=== PATIENT | male | born 1940 | race Caucasian/White ===

== ENCOUNTER → 2016-07-18 | Outpatient (CLI) | payer OTHER ==
--- NOTE | 2016-07-18 10:03 | CT ---
EXAMINATION TYPE: CT abdomen pelvis wo con DATE OF EXAM: 07/18/2016 9:14 AM COMPARISON: Prior abdomen pelvis 26 March 2014, 04 January 2016 HISTORY: f/u for AAA CT DLP: 1116 mGycm Automated exposure control for dose reduction was used. TECHNIQUE: Helical acquisition of images from the lung bases through the pelvis. FINDINGS: LUNG BASES: No significant abnormality is appreciated. AORTA: The aorta is dilated in the infrarenal location, there is aortic stent graft change present, metallic densities course from the level of the anterior and posterior wall on the right as on prior exam. The aorta measures approximately 7.3 cm in greatest dimension and is stable accounting for diff erences in measurement, exam is likely stable compared to prior exam 26 March 2014, luminal linear increased density extending anterior to posteriorly in the left lateral aspect is again noted. Common iliac artery on the right measures approximately 2.7 cm in greatest dimension, the left measures 2.7 cm, essentially stable. LIVER/GB: Scattered calcifications are present within the liver, gallbladder shows a stable appearanc e PANCREAS: No significant abnormality is seen. SPLEEN: Scattered calcifications as in the liver, findings suggest old granulomatous disease ADRENALS: Left adrenal not seen with certainty, patient is status post surgery KIDNEYS: Left kidney is also not seen. Right kidney shows no stone or hydronephrosis. REPRODUCTIVE ORGANS: Prostate is enlarged and shows calcification URINARY BLADDER: Urinary bladder shows a thickened wall likely due to chronic outlet obstruction BOWEL: Diverticular changes associated with the sigmoid colon. FREE AIR: No Free Air is visible. ASCITES: None visible. PELVIC ADENOPATHY: None visualized. RETROPERITONEAL ADENOPATHY: No Retroperitoneal Adenopathy visible. OSSEOUS STRUCTURES: No significant abnormality is seen. IMPRESSION: INFRARENAL ABDOMINAL AORTIC ANEURYSM, COMMON ILIAC ARTERY ANEURYSMS ARE THOUGHT TO BE STABLE ON THIS NONCONTRAST EXAM COMPARED TO MOST RECENT EXAM. DIVERTICULOSIS AND ADDITIONAL FINDINGS ABOVE.
== END | disposition home or self-care (01) ==
LOC: RADCTMAIN 08:59
PROVIDERS: ATTEND Thoracic Surgery (Cardiothoracic Vascular Surgery)
DX: I72.2 Aneurysm of renal artery (principal); I72.3 Aneurysm of iliac artery; K57.30 Diverticulosis of large intestine without perforation or abscess without bleeding
CPT/HCPCS: 74176

== ENCOUNTER 2016-11-10 18:28 | Emergency (ER) | payer OTHER ==
[2016-11-10] MEDS ORDERED: HYDROmorphone 1 MG/ML 1 ML SYRINGE IVP STA ×2 (19:09→22:28)
[2016-11-10] MEDS ORDERED: SODIUM CHLORIDE 0.9% 500 ML IV STA (19:09)
[2016-11-10] MEDS ORDERED: ONDANSETRON 4 MG/2 ML VIAL IVP STA (19:09)
[2016-11-10] MEDS ORDERED: RX INFO: IV CONTRAST WAS GIVEN 1 EACH MISC MISCELLANE PRN (19:10)
--- NOTE | 2016-11-10 19:28 | ED ---
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 Patient states she's had this pain for the last week it has slowly gotten worse. Patient states is in the left side of the abdomen as well. Patient denies any falls traumas or injuries. Patient denies any nausea vomiting changes in bowel or bladder habits. Patient did have that kidney removed due to cancer in the past. Patient does admit to a history of an aneurysm in the past as well. Patient states that he was concerned due to his continued pain and discomfort so he thought he should be evaluated. Patient denies any recent fever, chills, shortness of breath, chest pain, nausea vomiting, numbness or tingling, dysuria or hematuria, constipation or diarrhea, headaches or visual changes, or any other current symptoms. - Related Data Home Medications Medication Instructions Recorded Confirmed Tamsulosin HCl [Flomax] 0.4 mg PO DAILY 11/21/13 11/10/16 Aspirin EC [Ecotrin Low Dose] 81 mg PO DAILY 11/24/13 11/10/16 Atorvastatin [Lipitor] 40 mg PO HS 11/24/13 11/10/16 Carvedilol [Coreg] 25 mg PO BID 10/06/15 11/10/16 Cetirizine HCl [Zyrtec] 10 mg PO DAILY 10/06/15 11/10/16 HYDROcodone/APAP 7.5-325MG [[place] 1 tab PO TID 10/06/15 11/10/16 7.5-325] Budesonide-Formot 160-4.5 Mcg 2 puff INHALATION RT-BID 11/10/16 11/10/16 [Symbicort 160-4.5 Mcg Inhaler] Ergocalciferol (Vitamin D2) 50,000 unit PO Q14D 11/10/16 11/10/16 [Vitamin D2] Ferrous Sulfate [Feosol] 325 mg PO DAILY 11/10/16 11/10/16 Finasteride [Proscar] 5 mg PO DAILY 11/10/16 11/10/16 Ipratropium-Albuterol Nebulize 3 ml INHALATION RT-QID 11/10/16 11/10/16 [Duoneb 0.5 mg-3 mg/3 ml Soln] amLODIPine [Norvasc] 5 mg PO DAILY 11/10/16 11/10/16 cloNIDine HCL [Catapres] 0.1 mg PO TID 11/10/16 11/10/16 glyBURIDE [Diabeta] 2.5 mg PO AC-BID 11/10/16 11/10/16 Allergies Allergy/AdvReac Type Severity Reaction Status Date / Time cephalexin monohydrate Allergy Unknown Verified 11/10/16 19:24 [From Keflex] erythromycin base Allergy Unknown Verified 11/10/16 19:24 Review of Systems ROS Statement: Those systems with pertinent positive or pertinent negative responses have been documented in the HPI. ROS Other: All systems not noted in ROS Statement are negative. Past Medical History Past Medical History: COPD, CVA/TIA, Diabetes Mellitus, Hyperlipidemia, Hypertension Additional Past Medical History / Comment(s): kidney ca, numerous TIA's in 2013 , (R) femur fx. History of Any Multi-Drug Resistant Organisms: None Reported Past Surgical History: Orthopedic Surgery Additional Past Surgical History / Comment(s): kidney removal, aneurysm repair, broken femur 2013 Past Anesthesia/Blood Transfusion Reactions: No Reported Reaction Past Psychological History: No Psychological Hx Reported Smoking Status: Former smoker Past Alcohol Use History: None Reported Past Drug Use History: None Reported - Past Family History Father Family Medical History: Cancer Additional Family Medical History / Comment(s): lung cancer Mother Additional Family Medical History / Comment(s): sarc General Exam - General Exam Comments Initial Comments: General: The patient is awake and alert, in no distress, and does not appear acutely ill. Eye: Pupils are equal, round and reactive to light, extra-ocular movements are intact; there is normal conjunctiva bilaterally. No signs of icterus. Ears, nose, mouth and throat: There are moist mucous membranes and no oral lesions. Neck: The neck is supple, there is no tenderness. Cardiovascular: There is a regular rate and rhythm. No murmur, rub or gallop is appreciated. Respiratory: Lungs are clear to auscultation, respirations are non-labored, breath sounds are equal. No wheezes, stridor, rales, or rhonchi. Gastrointestinal: Soft, non-distended, mild to the left side of the abdomen without masses or organomegaly noted. There is no rebound or guarding present. Left sided CVA tenderness. Bowel sounds are unremarkable. Back: There is no tenderness to palpation in the midline. There is no obvious deformity. No rashes noted. Musculoskeletal: Normal ROM, no tenderness, There is no pedal edema. There is no calf tenderness or swelling. Sensation intact. Pulses equal bilaterally 2+. Neurological: CN II-XII intact, There are no obvious motor or sensory deficits. Coordination appears grossly intact. Speech is normal. Skin: Skin is warm and dry and no rashes or lesions are noted. Psychiatric: Cooperative, appropriate mood & affect, normal judgment. Limitations: no limitations Course Vital Signs 11/10/16 11/10/16 18:59 19:39 Temperature 98.2 F Pulse Rate 70 72 Respiratory 16 18 Rate Blood Pressure 177/81 156/74 O2 Sat by Pulse 94 L 95 Oximetry EKG Findings - EKG Comments: EKG Findings:: Sinus rhythm with first-degree AV block denying bpm, normal axis , no atopy, no S-T depressions or elevations, Medical Decision Making - Medical Decision Making 76-year-old male presents to the emergency department chief complaint of left- sided abdominal pain. At this time patient's imaging and lab work has been reviewed. This time there is concern for an acute splenic infarct. A heparin bolus was administered. On-call surgery Dr. Knight was discussed with the case and due to the severity of the patient's comorbidities as well as our lack of resources she has feels as if the patient needs to go to a larger facility for continued care. At this time the patient is requesting to be transferred [facility] abdominal aortic aneurysm procedure was completed. At this time we will transfer the patient via EMS. Patient is in agreement with this plan. At this time the case was discussed with [facility] and they do accept transfer. Because the patient is Dr. Levy. - Lab Data Result diagrams: 11/10/16 19:20 11/10/16 19:20 Lab Results 11/10/16 11/10/16 11/10/16 Range/Units 19:20 19:20 19:20 WBC 11.0 H (3.8-10.6) k/uL RBC 4.56 (4.30-5.90) m/uL Hgb 14.5 (13.0-17.5) gm/dL Hct 41.8 (39.0-53.0) % MCV 91.8 (80.0-100.0) fL MCH 31.9 (25.0-35.0) pg MCHC 34.8 (31.0-37.0) g/dL RDW 14.1 (11.5-15.5) % Plt Count 210 (150-450) k/uL Neutrophils % 73 % Lymphocytes % 16 % Monocytes % 7 % Eosinophils % 2 % Basophils % 1 % Neutrophils # 8.1 H (1.3-7.7) k/uL Lymphocytes # 1.7 (1.0-4.8) k/uL Monocytes # 0.7 (0-1.0) k/uL Eosinophils # 0.2 (0-0.7) k/uL Basophils # 0.1 (0-0.2) k/uL PT (9.0-12.0) sec INR (<1.2) APTT (22.0-30.0) sec Sodium 137 (137-145) mmol/L Potassium 4.5 (3.5-5.1) mmol/L Chloride 103 (98-107) mmol/L Carbon Dioxide 22 (22-30) mmol/L Anion Gap 12 mmol/L BUN 23 H (9-20) mg/dL Creatinine 1.60 H (0.66-1.25) mg/dL Est GFR (MDRD) Af Amer 51 (>60 ml/min/1.73 sqM) Est GFR (MDRD) Non-Af 42 (>60 ml/min/1.73 sqM) Glucose 212 H (74-99) mg/dL Calcium 9.3 (8.4-10.2) mg/dL Total Bilirubin 0.6 (0.2-1.3) mg/dL AST 18 (17-59) U/L ALT 34 (21-72) U/L Alkaline Phosphatase 99 (38-126) U/L Total Protein 6.8 (6.3-8.2) g/dL Albumin 4.1 (3.5-5.0) g/dL Urine Color Urine Appearance (Clear) Urine pH (5.0-8.0) Ur Specific [place] (1.001-1.035) Urine Protein (Negative) Urine Glucose (UA) (Negative) Urine Ketones (Negative) Urine Blood (Negative) Urine Nitrite (Negative) Urine Bilirubin (Negative) Urine Urobilinogen (<2.0) mg/dL Ur Leukocyte Esterase (Negative) Urine RBC (0-5) /hpf Urine WBC (0-5) /hpf Urine Mucus (None) /hpf Blood Type A Negative Blood Type Confirm Blood Type Recheck CABO Indicated Antibody Screen NEGATIVE Spec Expiration Date 11/13/2016231911/10/16 11/10/16 11/10/16 Range/Units 19:20 20:55 21:00 WBC (3.8-10.6) k/uL RBC (4.30-5.90) m/uL Hgb (13.0-17.5) gm/dL Hct (39.0-53.0) % MCV (80.0-100.0) fL MCH (25.0-35.0) pg MCHC (31.0-37.0) g/dL RDW (11.5-15.5) % Plt Count (150-450) k/uL Neutrophils % % Lymphocytes % % Monocytes % % Eosinophils % % Basophils % % Neutrophils # (1.3-7.7) k/uL Lymphocytes # (1.0-4.8) k/uL Monocytes # (0-1.0) k/uL Eosinophils # (0-0.7) k/uL Basophils # (0-0.2) k/uL PT 9.7 (9.0-12.0) sec INR 0.9 (<1.2) APTT 23.7 (22.0-30.0) sec Sodium (137-145) mmol/L Potassium (3.5-5.1) mmol/L Chloride (98-107) mmol/L Carbon Dioxide (22-30) mmol/L Anion Gap mmol/L BUN (9-20) mg/dL Creatinine (0.66-1.25) mg/dL Est GFR (MDRD) Af Amer (>60 ml/min/1.73 sqM) Est GFR (MDRD) Non-Af (>60 ml/min/1.73 sqM) Glucose (74-99) mg/dL Calcium (8.4-10.2) mg/dL Total Bilirubin (0.2-1.3) mg/dL AST (17-59) U/L ALT (21-72) U/L Alkaline Phosphatase (38-126) U/L Total Protein (6.3-8.2) g/dL Albumin (3.5-5.0) g/dL Urine Color Yellow Urine Appearance Clear (Clear) Urine pH 5.5 (5.0-8.0) Ur Specific [place] 1.017 (1.001-1.035) Urine Protein 1+ H (Negative) Urine Glucose (UA) 3+ H (Negative) Urine Ketones Negative (Negative) Urine Blood Trace H (Negative) Urine Nitrite Negative (Negative) Urine Bilirubin Negative (Negative) Urine Urobilinogen <2.0 (<2.0) mg/dL Ur Leukocyte Esterase Negative (Negative) Urine RBC <1 (0-5) /hpf Urine WBC 1 (0-5) /hpf Urine Mucus Rare H (None) /hpf Blood Type Blood Type Confirm A Negative Blood Type Recheck Antibody Screen Spec Expiration Date - Radiology Data Radiology results: report reviewed, image reviewed Disposition Clinical Impression: Renal insufficiency syndrome, History of kidney cancer, Aortic aneurysm, abdominal, Splenic infarct Disposition: OTHER INSTITUTION NOT DEFINED Referrals: Lauro Zacarias DO [Primary Care Provider] - 1-2 days Time of Disposition: 21:23 - Out of Hospital Transfer - Req. Specs Out of Hospital Transfer - Requested Specifics: Other Emergency Center ( [facility])
[2016-11-10 19:51] LABS: Basophils # (A) 0.1 k/uL (0-0.2); Basophils % (A) 1 %; Eosinophils # (A) 0.2 k/uL (0-0.7); Eosinophils % (A) 2 %; HCT 41.8 % (39.0-53.0); HDW 2.58; HGB 14.5 gm/dL (13.0-17.5); Luc % (Auto) 2; Lymphocytes # (A) 1.7 k/uL (1.0-4.8); Lymphocytes % (A) 16 %; MCH 31.9 pg (25.0-35.0); MCHC 34.8 g/dL (31.0-37.0); MCV 91.8 fL (80.0-100.0); Mean Platelet Volume 7.9; Monocytes # (A) 0.7 k/uL (0-1.0); Monocytes % (A) 7 %; Neutrophils # (A) 8.1 k/uL (1.3-7.7); Neutrophils % (A) 73 %; RBC 4.56 m/uL (4.30-5.90); RDW 14.1 % (11.5-15.5); WBC (Perox) 10.83
[2016-11-10 20:01] LABS: INR 0.9 (<1.2); Partial Thromboplastin Time 23.7 sec (22.0-30.0); Prothrombin Time 9.7 sec (9.0-12.0)
--- NOTE | 2016-11-10 20:09 | CT ---
EXAMINATION TYPE: CT abdomen pelvis wo con DATE OF EXAM: 11/10/2016 COMPARISON: 07/18/2016 HISTORY: Left flank pain CT DLP: mGycm Automated exposure control for dose reduction was used. TECHNIQUE: Helical acquisition of images was performed from the lung bases through the pelvis. FINDINGS: There is minimal pleural thickening at the lung bases. There is a small pericardial effusion. There i s mild linear density at the left lung base. Liver shows no focal defect. There is increased density in the dependent gallbladder consistent with small calcified gallstones. Bile ducts are not dilated. There is no sign of a pancreatic mass. There is variable hypodensity in the spleen. Left kidney is absent. The right kidney shows no hydronephrosis. There is aortoiliac stent noted. The re is a lower abdominal aortic aneurysm that measures up to 7 cm. There is atherosclerotic vascular c alcification. Appendix appears normal. I see no intestinal wall thickening. There are no dilated loops. There is no ascites. There are numerous diverticula in the sigmoid colon. Bladder distends smoothly. There is no sign of a pelvic mass. There is no ascites. Bony structures are intact.. IMPRESSION: THERE IS 7 CM ABDOMINAL AORTIC ANEURYSM WITHOUT CHANGE COMPARED TO OLD EXAM. PATCHY ATELECTASIS AT THE LEFT LUNG BASE IS NEW COMPARED TO OLD EXAM. HYPODENSE AREAS IN THE SPLEEN COULD RELATE TO ACUTE SPLENIC INFARCT AND APPEAR NEW COMPARED TO OLD EX AM. SIGMOID DIVERTICULOSIS WITHOUT SIGN OF DIVERTICULITIS. SMALL CALCIFIED GALLSTONES.
[2016-11-10 20:13] LABS: Calcium 9.3 mg/dL (8.4-10.2); Potassium 4.5 mmol/L (3.5-5.1); Total Bilirubin 0.6 mg/dL (0.2-1.3); Total Protein 6.8 g/dL (6.3-8.2)
[2016-11-10 20:21] VITALS: RESP 18
[2016-11-10 21:12] LABS: Appearance,Urine Clear (Clear); Bilirubin,Urine Negative (Negative); Glucose,Urine (UA) 3+ (Negative); Ketones,Urine Negative (Negative); Leukocyte Esterase,Urine Negative (Negative); Mucus,Urine Rare /hpf; Nitrite,Urine Negative (Negative); PH, Urine 5.5 (5.0-8.0); Particle Count 1679; Protein,Urine 1+ (Negative); RBC,Urine <1 /hpf (0-5); Specific Gravity,Urine 1.017 (1.001-1.035); UA Billing (MACRO vs. MICRO) MICRO; Urobilinogen,Urine <2.0 mg/dL (<2.0); WBC,Urine 1 /hpf (0-5)
[2016-11-10] MEDS ORDERED: HEPARIN SODIUM,PORCINE 5,000 UNIT/ML 1 ML VIAL IV ONE (21:17)
[2016-11-10] MEDS ORDERED: LEVOFLOXACIN 750MG-D5W PMX 750 MG in DEXTROSE/WATER 1 150ML.BAG IVPB STA (21:32)
[2016-11-10 22:43] VITALS: BP 139/73; PULSE 84; TEMP 98.4
== END 2016-11-10 22:47 | disposition short-term general hospital (02) ==
LOC: EC 18:28
DX: D73.5 Infarction of spleen (principal); I71.4 Abdominal aortic aneurysm, without rupture; N28.9 Disorder of kidney and ureter, unspecified; Z85.528 Personal history of other malignant neoplasm of kidney; E78.5 Hyperlipidemia, unspecified; I10 Essential (primary) hypertension; E11.9 Type 2 diabetes mellitus without complications; J44.9 Chronic obstructive pulmonary disease, unspecified; Z87.891 Personal history of nicotine dependence; Z79.82 Long term (current) use of aspirin; Z79.891 Long term (current) use of opiate analgesic; Z79.51 Long term (current) use of inhaled steroids; Z79.84 Long term (current) use of oral hypoglycemic drugs; Z79.899 Other long term (current) drug therapy; Z88.1 Allergy status to other antibiotic agents; Z90.5 Acquired absence of kidney; Z98.890 Other specified postprocedural states
CPT/HCPCS: 99285; 96374; 96375 ×2; 96376; 96361; 36415; 93005; 86900; 86901; 80053; 85025; 85610; 85730; 86850; 81001; 87040; 87086; 74176; J1644; J2405; J1170

== ENCOUNTER → 2017-02-07 | Outpatient (CLI) | payer OTHER ==
--- NOTE | 2017-02-07 11:41 | CT ---
EXAMINATION TYPE: CT abdomen pelvis wo con DATE OF EXAM: 02/07/2017 COMPARISON: 11/10/2016 and 07/18/2016 HISTORY: 76-year-old male follow-up AAA CT DLP: 1014 mGycm. Automated exposure control for dose reduction was used. TECHNIQUE: Contiguous axial scanning of the abdomen and pelvis without IV contrast. Coronal and sagit lara reconstructions performed. FINDINGS: Heart is normal size with small anterior basilar pericardial effusion. Prominent subpleural fat depos ition posterior lung bases, left greater than right. [place]andy areas of atelectasis or scar present. Liver enlarged measuring 19.4 cm craniocaudal. Otherwise, noncontrast appearance of the liver, adrena l glands, right kidney, and pancreas show no gross abnormality. The left kidney is absent possibly on a surgical or congenital basis. There is stable trace perisplenic fluid or soft tissue thickening along the upper pole of the spleen with heterogeneous and irregular contour to the upper pole. The appearance is unchanged from 7 but new from 07/18/2016 and can be correlated for any history of injury. Tiny layering calculi within the gallbladder. No dilated small bowel, free fluid, or free air. No mesenteric or retroperitoneal lymphadenopathy. Normal appendix. No significant stool burden. There is left hemicolonic diverticulosis greatest in th e proximal to mid sigmoid colon. No pericolonic inflammatory change. Circumferential bladder wall thickening is noted. Prostate gland is enlarged measuring 5.7 cm wide. N o abnormal fluid collection in the pelvis or pelvic lymphadenopathy. Patulous right inguinal canal. Bones: Intramedullary nail and screw fixation on the right. Mild degenerative changes at the hips. Degenerat kamron disc disease and facet arthropathy lower lumbar spine. No osseous destructive process. Vasculature: - Tortuous thoracic aorta with aneurysm of the distal descending thoracic aorta at 3.5 cm. - Mild aneurysm at the thoracoabdominal junction at 3.2 cm. - There is possible focal narrowing at the origin of the celiac axis and fusiform dilatation of the c eliac artery up to 1.6 cm, unchanged. - Mild aneurysm upper abdominal aorta just before the level of the stent graft at 3.1 cm. - Aortobiiliac stent graft is present beginning at the level of the renal arteries. - [place] aneurysm sac measures 7.1 cm wide and 6.7 cm AP (versus 7.0 x 6.6, previously). - Stable calcifications and density within the [place] sac outside of the stent grafts. - At the distal landing zones, the common iliac arteries remain ectatic measuring 2.6 cm on the right and 2.2 cm on the left, not significantly changed. - Contrast was not given for the determination of endoleak. IMPRESSION: 1. Aortobiiliac endovascular stent graft. The [place] sac is grossly stable (7.1 x 6.7 cm versus 7.0 x 6.6 cm, previously). Contrast was not administered for the determination of endoleak. 2. The common iliac arteries at the distal landing zones remain ectatic measuring 2.6 and 2.2 cm on the right and left sides, respectively. 3. Stable aneurysm of the distal descending thoracic aorta and upper abdominal aorta (3.5 and 3.1 cm , respectively). 4. 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 Given possible narrowing at its origin, cor relate for any symptoms of possible arcuate ligament syndrome. 5. Cholelithiasis, left hemicolonic diverticulosis, prostatomegaly, and circumferential bladder wall thickening that could represent cystitis or chronic bladder wall hypertrophy from BPH. 6. Stable deformity to the upper pole of the spleen as compared to 11/10/2016, again noted to be new from 07/18/2016; possibly on a posttraumatic basis. Clinically correlate.
== END | disposition home or self-care (01) ==
LOC: RADCTMAIN 09:40
PROVIDERS: ATTEND Thoracic Surgery (Cardiothoracic Vascular Surgery)
DX: I71.4 Abdominal aortic aneurysm, without rupture (principal); I71.2 Thoracic aortic aneurysm, without rupture; K80.20 Calculus of gallbladder without cholecystitis without obstruction; K57.30 Diverticulosis of large intestine without perforation or abscess without bleeding; N40.0 Benign prostatic hyperplasia without lower urinary tract symptoms; N32.89 Other specified disorders of bladder; D73.89 Other diseases of spleen; Z95.828 Presence of other vascular implants and grafts
CPT/HCPCS: 74176

== ENCOUNTER 2017-04-23 12:15 | Emergency (ER) | payer OTHER ==
[2017-04-23] MEDS ORDERED: IBUPROFEN 600 MG TAB PO STA (13:02)
[2017-04-23] MEDS ORDERED: ACETAMINOPHEN TAB 500 MG TAB PO STA (13:02)
[2017-04-23] MEDS ORDERED: LEVOFLOXACIN 750MG-D5W PMX 750 MG in DEXTROSE/WATER 1 150ML.BAG IVPB STA (13:03)
[2017-04-23] MEDS ORDERED: ALBUTEROL NEBULIZED 7.5 MG, IPRATROPIUM NEBULIZED 0.5 MG, SODIUM CHLORIDE 0.9% NEBULIZ ... INHALATION ONE ×3 (13:03)
[2017-04-23] MEDS ORDERED: methylPREDNISolone SOD SUCCI 125 MG/2 ML VIAL IV STA (13:04)
--- NOTE | 2017-04-23 13:06 | ED ---
General Adult HPI - General Chief complaint: Shortness of Breath Stated complaint: Diff Breathing, Fever Time Seen by Provider: 04/23/17 12:30 Source: patient, family, RN notes reviewed Mode of arrival: wheelchair Limitations: no limitations - History of Present Illness Initial comments: This is a 76-year-old male with past medical history significant for COPD per patient comes in today because he has been coughing for the last 3-4 days. Patient states last 2 days she's had a fever but today he has not taken his temperature and so he doesn't know. Patient states also much more short of breath than normal. Patient denies any chest pain or palpitations. Patient denies any calf pain or leg swelling. Patient denies abdominal pain patient denies nausea vomiting diarrhea. Patient denies any lightheadedness dizziness or near syncopal episode. - Related Data Home Medications Medication Instructions Recorded Confirmed Tamsulosin HCl [Flomax] 0.4 mg PO DAILY 11/21/13 04/23/17 Aspirin EC [Ecotrin Low Dose] 81 mg PO DAILY 11/24/13 04/23/17 Atorvastatin [Lipitor] 40 mg PO HS 11/24/13 04/23/17 Carvedilol [Coreg] 25 mg PO BID 10/06/15 04/23/17 Cetirizine HCl [Zyrtec] 10 mg PO DAILY 10/06/15 04/23/17 HYDROcodone/APAP 7.5-325MG [[place] 1 tab PO TID 10/06/15 04/23/17 7.5-325] Budesonide-Formot 160-4.5 Mcg 2 puff INHALATION RT-BID 11/10/16 04/23/17 [Symbicort 160-4.5 Mcg Inhaler] Ergocalciferol (Vitamin D2) 50,000 unit PO MO 11/10/16 04/23/17 [Vitamin D2] Ferrous Sulfate [Feosol] 325 mg PO DAILY 11/10/16 04/23/17 Finasteride [Proscar] 5 mg PO DAILY 11/10/16 04/23/17 Ipratropium-Albuterol Nebulize 3 ml INHALATION RT-QID 11/10/16 04/23/17 [Duoneb 0.5 mg-3 mg/3 ml Soln] amLODIPine [Norvasc] 5 mg PO DAILY 11/10/16 04/23/17 cloNIDine HCL [Catapres] 0.1 mg PO TID 11/10/16 04/23/17 Apixaban [Eliquis] 5 mg PO BID 04/23/17 04/23/17 Calcitriol [Rocaltrol] 0.25 mcg PO MO 04/23/17 04/23/17 Docusate [Colace] 100 mg PO BID 04/23/17 04/23/17 Lisinopril [Zestril] 5 mg PO DAILY 04/23/17 04/23/17 glipiZIDE [Glucotrol] 10 mg PO AC-BID 04/23/17 04/23/17 Previous Rx's Medication Instructions Recorded Levofloxacin [Levaquin] 750 mg PO DAILY #10 tab 04/23/17 predniSONE 40 mg PO DAILY #8 tab 04/23/17 Allergies Allergy/AdvReac Type Severity Reaction Status Date / Time cephalexin monohydrate Allergy Unknown Verified 04/23/17 13:37 [From Miproto] erythromycin base Allergy Unknown Verified 04/23/17 13:37 Review of Systems ROS Statement: Those systems with pertinent positive or pertinent negative responses have been documented in the HPI. ROS Other: All systems not noted in ROS Statement are negative. Past Medical History Past Medical History: COPD, CVA/TIA, Diabetes Mellitus, Hyperlipidemia, Hypertension Additional Past Medical History / Comment(s): kidney ca, numerous TIA's in 2013 , (R) femur fx. History of Any Multi-Drug Resistant Organisms: None Reported Past Surgical History: Orthopedic Surgery Additional Past Surgical History / Comment(s): kidney removal, aneurysm repair, broken femur 2013 Past Anesthesia/Blood Transfusion Reactions: No Reported Reaction Past Psychological History: No Psychological Hx Reported Smoking Status: Former smoker Past Alcohol Use History: None Reported Past Drug Use History: None Reported - Past Family History Father Family Medical History: Cancer Additional Family Medical History / Comment(s): lung cancer Mother Additional Family Medical History / Comment(s): sarc General Exam - General Exam Comments Initial Comments: GENERAL: Patient is well-developed and well-nourished. Patient is nontoxic and well- hydrated and is in mild distress. ENT: Neck is soft and supple. No significant lymphadenopathy is noted. Oropharynx is clear. Moist mucous membranes. Neck has full range of motion without eliciting any pain. EYES: The sclera were anicteric and conjunctiva were pink and moist. Extraocular movements were intact and pupils were equal round and reactive to light. Eyelids were unremarkable. PULMONARY: Patient is a very wheezing and slight crackles in the right base CARDIOVASCULAR: There is a regular rate and rhythm without any murmurs gallops or rubs. ABDOMEN: Soft and nontender with normal bowel sounds. No palpable organomegaly was noted. There is no palpable pulsatile mass. SKIN: Skin is clear with no lesions or rashes and otherwise unremarkable. NEUROLOGIC: Patient is alert and oriented x3. Cranial nerves II through XII are grossly intact. Motor and sensory are also intact. Normal speech, volume and content. Symmetrical smile. MUSCULOSKELETAL: Normal extremities with adequate strength and full range of motion. LYMPHATICS: No significant lymphadenopathy is noted PSYCHIATRIC: Normal psychiatric evaluation. Normal interpersonal interactions appears functionally intact in deals appropriately with others. No signs of depression. No signs of anxiety. Limitations: no limitations Course Vital Signs 04/23/17 04/23/17 04/23/17 12:26 12:30 13:21 Temperature 98.9 F 101.7 F H Pulse Rate 88 87 Respiratory 20 Rate Blood Pressure 115/59 O2 Sat by Pulse 94 L Oximetry 04/23/17 04/23/17 04/23/17 13:36 14:06 14:13 Temperature Pulse Rate 90 88 94 Respiratory Rate Blood Pressure O2 Sat by Pulse Oximetry 04/23/17 15:32 Temperature 97.9 F Pulse Rate 73 Respiratory 20 Rate Blood Pressure 95/59 O2 Sat by Pulse 96 Oximetry Medical Decision Making - Medical Decision Making EKG shows sinus rhythm at 89 bpm UT interval is 278 QRSs 100 Q-T intervals 3:30 QTC is 411. Patient's EKG shows occasional PAC. There is no ST segment elevation noted. Chest x-ray shows no acute abnormality. - Lab Data Result diagrams: 04/23/17 12:45 04/23/17 12:45 Lab Results 04/23/17 04/23/17 04/23/17 Range/Units 12:45 12:45 12:45 WBC 7.2 (3.8-10.6) k/uL RBC 4.82 (4.30-5.90) m/uL Hgb 14.7 (13.0-17.5) gm/dL Hct 43.5 (39.0-53.0) % MCV 90.4 (80.0-100.0) fL MCH 30.5 (25.0-35.0) pg MCHC 33.8 (31.0-37.0) g/dL RDW 13.3 (11.5-15.5) % Plt Count 134 L (150-450) k/uL Neutrophils % 83 % Lymphocytes % 11 % Monocytes % 4 % Eosinophils % 0 % Basophils % 0 % Neutrophils # 6.0 (1.3-7.7) k/uL Lymphocytes # 0.8 L (1.0-4.8) k/uL Monocytes # 0.3 (0-1.0) k/uL Eosinophils # 0.0 (0-0.7) k/uL Basophils # 0.0 (0-0.2) k/uL PT (9.0-12.0) sec INR (<1.2) APTT (22.0-30.0) sec Sodium 129 L (137-145) mmol/L Potassium 4.8 (3.5-5.1) mmol/L Chloride 97 L (98-107) mmol/L Carbon Dioxide 23 (22-30) mmol/L Anion Gap 9 mmol/L BUN 26 H (9-20) mg/dL Creatinine 2.30 H (0.66-1.25) mg/dL Est GFR (MDRD) Af Amer 34 (>60 ml/min/1.73 sqM) Est GFR (MDRD) Non-Af 28 (>60 ml/min/1.73 sqM) Glucose 182 H (74-99) mg/dL Plasma Lactic Acid [place] (0.7-2.0) mmol/L Calcium 8.6 (8.4-10.2) mg/dL Total Bilirubin 0.9 (0.2-1.3) mg/dL AST 30 (17-59) U/L ALT 40 (21-72) U/L Alkaline Phosphatase 82 (38-126) U/L Total Creatine Kinase 91 (55-170) U/L CK-MB (CK-2) 0.4 (0.0-2.4) ng/mL CK-MB (CK-2) Rel Index 0.4 Troponin I 0.017 (0.000-0.034) ng/mL Total Protein 6.4 (6.3-8.2) g/dL Albumin 3.5 (3.5-5.0) g/dL Urine Color Urine Appearance (Clear) Urine pH (5.0-8.0) Ur Specific [place] (1.001-1.035) Urine Protein (Negative) Urine Glucose (UA) (Negative) Urine Ketones (Negative) Urine Blood (Negative) Urine Nitrite (Negative) Urine Bilirubin (Negative) Urine Urobilinogen (<2.0) mg/dL Ur Leukocyte Esterase (Negative) Urine Bacteria (None) /hpf Urine Mucus (None) /hpf Influenza Type A RNA (Not Detectd) Influenza Type B (PCR) (Not Detectd) 04/23/17 04/23/17 04/23/17 Range/Units 12:45 12:45 13:01 WBC (3.8-10.6) k/uL RBC (4.30-5.90) m/uL Hgb (13.0-17.5) gm/dL Hct (39.0-53.0) % MCV (80.0-100.0) fL MCH (25.0-35.0) pg MCHC (31.0-37.0) g/dL RDW (11.5-15.5) % Plt Count (150-450) k/uL Neutrophils % % Lymphocytes % % Monocytes % % Eosinophils % % Basophils % % Neutrophils # (1.3-7.7) k/uL Lymphocytes # (1.0-4.8) k/uL Monocytes # (0-1.0) k/uL Eosinophils # (0-0.7) k/uL Basophils # (0-0.2) k/uL PT 10.1 (9.0-12.0) sec INR 1.0 (<1.2) APTT 26.1 (22.0-30.0) sec Sodium (137-145) mmol/L Potassium (3.5-5.1) mmol/L Chloride (98-107) mmol/L Carbon Dioxide (22-30) mmol/L Anion Gap mmol/L BUN (9-20) mg/dL Creatinine (0.66-1.25) mg/dL Est GFR (MDRD) Af Amer (>60 ml/min/1.73 sqM) Est GFR (MDRD) Non-Af (>60 ml/min/1.73 sqM) Glucose (74-99) mg/dL Plasma Lactic Acid [place] 1.5 (0.7-2.0) mmol/L Calcium (8.4-10.2) mg/dL Total Bilirubin (0.2-1.3) mg/dL AST (17-59) U/L ALT (21-72) U/L Alkaline Phosphatase (38-126) U/L Total Creatine Kinase (55-170) U/L CK-MB (CK-2) (0.0-2.4) ng/mL CK-MB (CK-2) Rel Index Troponin I (0.000-0.034) ng/mL Total Protein (6.3-8.2) g/dL Albumin (3.5-5.0) g/dL Urine Color Urine Appearance (Clear) Urine pH (5.0-8.0) Ur Specific [place] (1.001-1.035) Urine Protein (Negative) Urine Glucose (UA) (Negative) Urine Ketones (Negative) Urine Blood (Negative) Urine Nitrite (Negative) Urine Bilirubin (Negative) Urine Urobilinogen (<2.0) mg/dL Ur Leukocyte Esterase (Negative) Urine Bacteria (None) /hpf Urine Mucus (None) /hpf Influenza Type A RNA Not Detected (Not Detectd) Influenza Type B (PCR) Not Detected (Not Detectd) 04/23/17 Range/Units 15:30 WBC (3.8-10.6) k/uL RBC (4.30-5.90) m/uL Hgb (13.0-17.5) gm/dL Hct (39.0-53.0) % MCV (80.0-100.0) fL MCH (25.0-35.0) pg MCHC (31.0-37.0) g/dL RDW (11.5-15.5) % Plt Count (150-450) k/uL Neutrophils % % Lymphocytes % % Monocytes % % Eosinophils % % Basophils % % Neutrophils # (1.3-7.7) k/uL Lymphocytes # (1.0-4.8) k/uL Monocytes # (0-1.0) k/uL Eosinophils # (0-0.7) k/uL Basophils # (0-0.2) k/uL PT (9.0-12.0) sec INR (<1.2) APTT (22.0-30.0) sec Sodium (137-145) mmol/L Potassium (3.5-5.1) mmol/L Chloride (98-107) mmol/L Carbon Dioxide (22-30) mmol/L Anion Gap mmol/L BUN (9-20) mg/dL Creatinine (0.66-1.25) mg/dL Est GFR (MDRD) Af Amer (>60 ml/min/1.73 sqM) Est GFR (MDRD) Non-Af (>60 ml/min/1.73 sqM) Glucose (74-99) mg/dL Plasma Lactic Acid [place] (0.7-2.0) mmol/L Calcium (8.4-10.2) mg/dL Total Bilirubin (0.2-1.3) mg/dL AST (17-59) U/L ALT (21-72) U/L Alkaline Phosphatase (38-126) U/L Total Creatine Kinase (55-170) U/L CK-MB (CK-2) (0.0-2.4) ng/mL CK-MB (CK-2) Rel Index Troponin I (0.000-0.034) ng/mL Total Protein (6.3-8.2) g/dL Albumin (3.5-5.0) g/dL Urine Color Yellow Urine Appearance Clear (Clear) Urine pH 5.5 (5.0-8.0) Ur Specific [place] 1.018 (1.001-1.035) Urine Protein 2+ H (Negative) Urine Glucose (UA) 3+ H (Negative) Urine Ketones Negative (Negative) Urine Blood Negative (Negative) Urine Nitrite Negative (Negative) Urine Bilirubin Negative (Negative) Urine Urobilinogen 2.0 (<2.0) mg/dL Ur Leukocyte Esterase Negative (Negative) Urine Bacteria Rare H (None) /hpf Urine Mucus Rare H (None) /hpf Influenza Type A RNA (Not Detectd) Influenza Type B (PCR) (Not Detectd) Disposition Clinical Impression: Acute bronchitis Disposition: HOME SELF-CARE Instructions: Acute Bronchitis (ED) Additional Instructions: Patient should take Levaquin as prescribed. Patient should continue doing breathing treatments as needed Prescriptions: Levofloxacin [Levaquin] 750 mg PO DAILY #10 tab predniSONE 40 mg PO DAILY #8 tab Referrals: Lauro Zacarias DO [Primary Care Provider] - 1-2 days Time of Disposition: 16:08
[2017-04-23] MEDS: SODIUM CHLORIDE 0.9% 500 ML IV SCH (13:14)
[2017-04-23 13:21] LABS: Basophils % (A) 0 %; Eosinophils % (A) 0 %; HCT 43.5 % (39.0-53.0); HGB 14.7 gm/dL (13.0-17.5); Lymphocytes # (A) 0.8 k/uL (1.0-4.8); Lymphocytes % (A) 11 %; MCH 30.5 pg (25.0-35.0); MCHC 33.8 g/dL (31.0-37.0); MCV 90.4 fL (80.0-100.0); Mean Platelet Volume 7.8; Monocytes # (A) 0.3 k/uL (0-1.0); Monocytes % (A) 4 %; Neutrophils % (A) 83 %; Platelet Count 134 k/uL (150-450); RBC 4.82 m/uL (4.30-5.90); RDW 13.3 % (11.5-15.5); WBC 7.2 k/uL (3.8-10.6)
[2017-04-23 13:28] LABS: Albumin 3.5 g/dL (3.5-5.0); Calcium 8.6 mg/dL (8.4-10.2); Potassium 4.8 mmol/L (3.5-5.1); Total Bilirubin 0.9 mg/dL (0.2-1.3); Total Protein 6.4 g/dL (6.3-8.2)
[2017-04-23 13:29] LABS: Partial Thromboplastin Time 26.1 sec (22.0-30.0); Prothrombin Time 10.1 sec (9.0-12.0)
[2017-04-23 13:51] LABS: Creatine Kinase MB 0.4 ng/mL (0.0-2.4); Troponin I 0.017 ng/mL (0.000-0.034)
--- NOTE | 2017-04-23 14:36 | XR ---
EXAMINATION TYPE: XR chest 2V DATE OF EXAM: 04/23/2017 COMPARISON: 10/06/2015 TECHNIQUE: PA and lateral views submitted. HISTORY: Cough and fever FINDINGS: The lungs are clear and there is no pneumothorax, pleural effusion, or focal pneumonia. Calcified l ymph nodes in the hilum noted. Atherosclerotic change aorta. Biapical pleural thickening. No overt fa ilure. Hypertrophic and degenerative change of the spine. Calcified granuloma suspected posteriorly o n the lateral view. Pleural thickening noted. IMPRESSION: 1. No acute process.
[2017-04-23 15:43] LABS: Appearance,Urine Clear (Clear); Bacteria,Urine Rare /hpf; Bilirubin,Urine Negative (Negative); Blood,Urine Negative (Negative); Color,Urine Yellow; Glucose,Urine (UA) 3+ (Negative); Ketones,Urine Negative (Negative); Leukocyte Esterase,Urine Negative (Negative); Mucus,Urine Rare /hpf; Nitrite,Urine Negative (Negative); PH, Urine 5.5 (5.0-8.0); Protein,Urine 2+ (Negative); Specific Gravity,Urine 1.018 (1.001-1.035)
[2017-04-24 23:03] VITALS: BP 100/58; PULSE 78; RESP 18; TEMP 97.9
== END 2017-04-23 16:27 | disposition home or self-care (01) ==
LOC: EC 12:15
DX: J20.9 Acute bronchitis, unspecified (principal); J44.0 Chronic obstructive pulmonary disease with (acute) lower respiratory infection; I49.1 Atrial premature depolarization; E78.5 Hyperlipidemia, unspecified; I10 Essential (primary) hypertension; E11.9 Type 2 diabetes mellitus without complications; Z87.891 Personal history of nicotine dependence; Z79.01 Long term (current) use of anticoagulants; Z79.51 Long term (current) use of inhaled steroids; Z79.82 Long term (current) use of aspirin; Z79.84 Long term (current) use of oral hypoglycemic drugs; Z79.891 Long term (current) use of opiate analgesic; Z79.899 Other long term (current) drug therapy; Z88.1 Allergy status to other antibiotic agents; Z85.528 Personal history of other malignant neoplasm of kidney; Z98.890 Other specified postprocedural states; Z80.1 Family history of malignant neoplasm of trachea, bronchus and lung
CPT/HCPCS: 99285; 36415; 94644; 93005; 80053; 82550; 82553; 83605; 84484; 85025; 85610; 85730; 81001; 87040; 87086; 87502; 71046; 96365; 96366; 96375; J2930; J1956

== ENCOUNTER → 2018-03-14 | Outpatient (CLI) | payer OTHER ==
--- NOTE | 2018-03-14 10:39 | MR ---
EXAMINATION TYPE: MR shoulder RT wo con DATE OF EXAM: 03/14/2018 COMPARISON: None HISTORY: Right shoulder pain TECHNIQUE: Multiplanar, multisequence imaging of the right shoulder is performed without contrast. FINDINGS: Rotator Cuff: There is a rotator cuff tear present, supraspinatus and infraspinatus tendons are separ ated from their insertion and retracted significantly, infraspinatus tendon is disrupted and shows fl uid signal to the level of the scapular spine, supraspinatus tendon not well appreciated distal to th e acromioclavicular joint, again fluid signal is noted Acromioclavicular Joint: Arthropathy is present. Glenohumeral Joint: Shoulder is high riding. Remodeling is present compatible with osteoarthritic venkat nge of the humeral head. Labrum: There is some fraying of the anterior labrum which may be degenerative. Biceps Tendon: Long head of biceps tendon is present within the bicipital groove, there are T2 hyperi ntense foci along the tendon extending into the musculature anteriorly inferior to the coracoid proce ss compatible with probable ganglion formation Bone marrow signal: Pseudocysts are present in the humeral head. Some reactive marrow signal change s uspected in the acromion. Other: Distal acromial spur suspected. IMPRESSION: Chronic rotator cuff tear and additional findings above.
== END | disposition home or self-care (01) ==
LOC: RADMRIMAIN 08:57
DX: M75.101 Unspecified rotator cuff tear or rupture of right shoulder, not specified as traumatic (principal); M19.011 Primary osteoarthritis, right shoulder; M89.9 Disorder of bone, unspecified

== ENCOUNTER → 2020-07-28 | Outpatient (CLI) | payer OTHER ==
--- NOTE | 2020-07-28 15:17 | US ---
EXAMINATION TYPE: US kidneys/renal and bladder DATE OF EXAM: 07/28/2020 COMPARISON: NONE CLINICAL HISTORY: Chronic Kidney Disease N18.3. CKD, left nephrectomy EXAM MEASUREMENTS: Right Kidney: 11.8 x 5.8 x 5.3 cm Left Kidney: Surgically absent Right Kidney: no evidence of hydronephrosis Left Kidney: Surgically absent Bladder: appears wnl Bilateral Jets seen: no There is no evidence for hydronephrosis at this point in time. No nephrolithiasis is seen. No laura s are identified. The urinary bladder is anechoic. IMPRESSION: Left nephrectomy changes. No distinct abnormality appreciated.
== END | disposition home or self-care (01) ==
LOC: RADUSWWP 14:48
PROVIDERS: ATTEND Internal Medicine Nephrology
DX: N18.30 Chronic kidney disease, stage 3 unspecified (principal); Z90.5 Acquired absence of kidney
CPT/HCPCS: 76770

== ENCOUNTER → 2022-09-26 | Outpatient (CLI) | payer OTHER ==
--- NOTE | 2022-09-26 15:24 | XR ---
EXAMINATION TYPE: XR chest 2V DATE OF EXAM: 09/26/2022 COMPARISON: NONE TECHNIQUE: PA and lateral views submitted. HISTORY: Renal cell carcinoma FINDINGS: The lungs are clear and there is no pneumothorax, pleural effusion, or focal pneumonia. Heart size normal and no overt failure. Osseous structures demonstrate hypertrophic and degenerative changes of the spine. Dilation of the ascending aorta measuring 4.5 cm. AC joint arthropathy noted. Hyperinflati on of the lungs correlate for COPD. Calcified lymph nodes in the hilum. Cannot exclude a small granul victorino on the lateral view. IMPRESSION: 1. No acute process. There is a suggestion of a thoracic aortic aneurysm measuring 4.[address] chest.
--- NOTE | 2022-09-28 09:05 | CT ---
EXAMINATION TYPE: CT abdomen pelvis wo con DATE OF EXAM: 09/26/2022 COMPARISON: 02/07/2017 HISTORY: MALIGNANT NEOPLASM OF LEFT KIDNEY CT DLP: 1567.8 mGycm Examination of the solid and hollow viscera is limited given the lack of contrast. FINDINGS: LUNG BASES: No evidence for nodule. No evidence for infiltrate. LIVER/GB: Layering gallstones are seen within the gallbladder lumen. No space-occupying hepatic lesio n. PANCREAS: No pancreatic mass identified. No inflammatory process seen. SPLEEN: No evidence for splenomegaly. No intrasplenic lesions seen. ADRENALS: No adrenal nodules identified. No evidence for thickening. KIDNEYS: There is been left-sided nephrectomy with the left renal fossa free of distinct mass at this time. The right kidney reveals No evidence for renal mass. No nephrolithiasis. No hydronephrosis. BOWEL: Appendix has a normal appearance. No evidence of bowel obstruction. No inflammatory process. S igmoid diverticulosis without diverticulitis. Lymph nodes: No evidence for adenopathy greater than 1 cm. Abdominal aorta: Aortoiliac stent graft is in place. [place] aneurysm measures 6.5 cm maximal AP dimen dax. Genital organs: Enlarged prostate gland. Other: Postoperative changes right hip fixation. Vacuum disc L5-S1. IMPRESSION: 1. Postoperative changes of left-sided nephrectomy without evidence for tumor recurrence or residual mass. 2. [place] abdominal aortic aneurysm with aortoiliac stent graft as discussed. 2. Layering gallstones.
== END | disposition home or self-care (01) ==
LOC: RADCTMAIN 15:02
PROVIDERS: ATTEND Urology
DX: C64.2 Malignant neoplasm of left kidney, except renal pelvis (principal)
CPT/HCPCS: 71046; 74176

== ENCOUNTER → 2022-10-16 | Outpatient (CLI) | payer OTHER ==
--- NOTE | 2022-10-18 07:36 | MR ---
EXAMINATION TYPE: MR Prostate wo/w con DATE OF EXAM: 10/16/2022 COMPARISON: CT abdomen and pelvis September 26, 2022 INDICATION: Elevated PSA. PSA: 7.50 ng/ml on September 12, 2022 increased from 3.18 in 2018 Recent Biopsy and Date: Biopsy 2011 Pathology Report (If Applicable): Benign results. TECHNIQUE: Examination was performed using a 3T MRI without an endorectal coil. Multiparametric imaging was perf ormed with T2 mutliplanar sequences, axial diffusion weighted imaging and dynamic contrast enhanced i maging, utilizing 11.5 mL intravenous Gadavist gadolinium contrast. FINDINGS: PROSTATE VOLUME: 6.7 cm SI x 5.4 cm AP x 6.9 cm LR Vol= 130.7 cc PSA DENSITY: 0.06 ng/ml/cc Markedly enlarged prostate consistent with BPH. No suspicious areas of diminished signal on ADC mappi ng or increased signal on diffusion-weighted imaging in the transitional zone. There is overall heter ogeneity in the central transitional zone. There is vague area of heterogeneous diminished T2 signal intensity with indistinct margins right midzone axial image 17 shows no diminished signal on ADC angel ing or increased signal on diffusion-weighted imaging. PI-Rads 3 lesion. Seminal vesicles are symmetric and within normal limits. Prostate capsule is maintained. Urinary blad marcie shows moderate distention without wall thickening or trabeculation . No pelvic adenopathy is seen . No free fluid in pelvis is seen. Visualized osseous structures show susceptibility artifact in the right hip presumed from prior fixation surgery IMPRESSION: Markedly enlarged prostate. A focus of clinically significant cancer is not definitively identified. Highest Assessment Category: 3 MRI Stage: T0 N0 M0 based on review of pelvic images. False negative rates for MRI range from 5-20% depending on risk profile. Assessment Categories: 1 ? Very low (clinically significant cancer is highly unlikely to be present) 2 ? Low (clinically significant cancer is unlikely to be present) 3 ? Intermediate (the presence of clinically significant cancer is equivocal) 4 ? High (clinically significant cancer is likely to be present) 5 ? Very high (clinically significant cancer is highly likely to be present)
== END | disposition home or self-care (01) ==
LOC: RADMRIMAIN 08:07
PROVIDERS: ATTEND Urology
DX: N40.0 Benign prostatic hyperplasia without lower urinary tract symptoms (principal); R97.20 Elevated prostate specific antigen [PSA]
CPT/HCPCS: 72197; A9585

== ENCOUNTER 2023-09-26 10:21 | Observation (INO) | payer OTHER, MEDICARE ==
--- NOTE | 2023-09-26 10:50 | ED ---
Abdominal Pain HPI - General Chief Complaint: Abdominal Pain Stated Complaint: Blood in stool Time Seen by Provider: 09/26/23 10:48 Source: patient, RN notes reviewed Mode of arrival: ambulatory Limitations: no limitations - History of Present Illness Initial Comments: 83-year-old male presented to the ER with a chief complaint of bright red blood per stool. He is reports approximately 2 weeks he has been noticing bright red blood in his stool and when he wipes. He does report he has been straining while defecating. He denies any abdominal pain. Patient is currently taking Eliquis. He denies any history of hemorrhoids or anal fissures. He denies any melena, chest pain, shortness of breath, dizziness, lightheadedness, urinary complaints or peripheral edema. Denies any fevers or chills. - Related Data Home Medications Medication Instructions Recorded Confirmed Tamsulosin HCl [Flomax] 0.4 mg PO HS 11/21/13 09/26/23 Carvedilol [Coreg] 25 mg PO BID-W/MEALS 10/06/15 09/26/23 Cetirizine HCl [Zyrtec] 10 mg PO DAILY 10/06/15 09/26/23 HYDROcodone/APAP 7.5-325MG [[place] 1 tab PO 5XD 10/06/15 09/26/23 7.5-325] Ergocalciferol (Vitamin D2) 50,000 unit PO LEON 11/10/16 09/26/23 [Vitamin D2] Finasteride [Proscar] 5 mg PO HS 11/10/16 09/26/23 Apixaban [Eliquis] 5 mg PO BID 04/23/17 09/26/23 Docusate [Colace] 100 mg PO BID PRN 04/23/17 09/26/23 calcitrioL [Rocaltrol] 0.25 mcg PO SA 04/23/17 09/26/23 glipiZIDE [Glucotrol] 10 mg PO AC-TID 04/23/17 09/26/23 lisinopriL [Zestril] 5 mg PO DAILY 04/23/17 09/26/23 Alogliptin Benzoate [Alogliptin] 12.5 mg PO DAILY 09/26/23 09/26/23 Atorvastatin [Lipitor] 40 mg PO HS 09/26/23 09/26/23 Empagliflozin [Jardiance] 25 mg PO DAILY 09/26/23 09/26/23 Fluticasone Nasal [place] [Flonase 1 spray EA NOSTRIL BID PRN 09/26/23 09/26/23 Nasal [place]] Fluticasone Propion/Salmeterol 1 puff INHALATION RT-BID 09/26/23 09/26/23 [Advair 250-50 Diskus] Furosemide [Lasix] 20 mg PO SUFRSA 09/26/23 09/26/23 Hydrocortisone Oint 1 applic TOPICAL BID PRN 09/26/23 09/26/23 [Hydrocortisone 2.5% Oint] Ketoconazole 2% Cream [Nizoral 2%] 1 applic TOPICAL BID 09/26/23 09/26/23 Petrolatum, White [Aquaphor] 1 applic TOPICAL BID 09/26/23 09/26/23 Allergies Allergy/AdvReac Type Severity Reaction Status Date / Time amoxicillin [From Augmentin] Allergy Rash/Hives Verified 09/26/23 13:31 clavulanic acid Allergy Rash/Hives Verified 09/26/23 13:31 [From Augmentin] erythromycin base Allergy Unknown Verified 09/26/23 13:31 levofloxacin [From Levaquin] Allergy Unknown Verified 09/26/23 13:31 sulfamethoxazole Allergy Rash/Hives Verified 09/26/23 13:31 [From Bactrim] trimethoprim [From Bactrim] Allergy Rash/Hives Verified 09/26/23 13:31 cephalexin monohydrate AdvReac fever, Verified 09/26/23 13:31 [From Keflex] chills, cold sweats Review of Systems ROS Statement: Those systems with pertinent positive or pertinent negative responses have been documented in the HPI. ROS Other: All systems not noted in ROS Statement are negative. Past Medical History Past Medical History: COPD, CVA/TIA, Diabetes Mellitus, Hyperlipidemia, Hypertension Additional Past Medical History / Comment(s): kidney ca, numerous TIA's in 2013, (R) femur fx. History of Any Multi-Drug Resistant Organisms: None Reported Past Surgical History: Orthopedic Surgery Additional Past Surgical History / Comment(s): kidney removal, aneurysm repair, broken femur 2013 Past Anesthesia/Blood Transfusion Reactions: No Reported Reaction Past Psychological History: No Psychological Hx Reported Past Alcohol Use History: None Reported Past Drug Use History: None Reported - Past Family History Father Family Medical History: Cancer Additional Family Medical History / Comment(s): lung cancer Mother Additional Family Medical History / Comment(s): sarc General Exam Limitations: no limitations General appearance: alert, in no apparent distress Respiratory exam: Present: normal lung sounds bilaterally. Absent: respiratory distress, wheezes, rales, rhonchi, stridor Cardiovascular Exam: Present: regular rate, normal rhythm, normal heart sounds. Absent: systolic murmur, diastolic murmur, rubs, gallop, clicks GI/Abdominal exam: Present: soft, tenderness (mild LLQ), normal bowel sounds Skin exam: Present: warm, dry, intact, normal color. Absent: rash Course Vital Signs 09/26/23 10:31 Temperature 97.6 F Pulse Rate 75 Respiratory 16 Rate Blood Pressure 117/72 O2 Sat by Pulse 92 L Oximetry - Reevaluation(s) Reevaluation #1: 09/26/23 13:39 Case discussed with morena Monge, who accepts medical admission. Medical Decision Making - Medical Decision Making Was pt. sent in by a medical professional or institution (, PA, HYDROELECTRIC PLANT TECHNICIAN, urgent care, hospital, or [place] health care facility...) When possible be specific @ -No Did you speak to anyone other than the patient for history (EMS, parent, family, police, friend...)? What history was obtained from this source @ -No Did you review nursing and triage notes (agree or disagree)? Why? @ -I reviewed and agree with nursing and triage notes Were old charts reviewed (outside hosp., previous admission, EMS record, old EKG, old radiological studies, urgent care reports/EKG's, [place] health care facility records)? Report findings @ -No old charts were reviewed Differential Diagnosis (chest pain, altered mental status, abdominal pain women, abdominal pain men, vaginal bleeding, weakness, fever, dyspnea, syncope, headache, dizziness, GI bleed, back pain, seizure, CVA, palpatations, mental health, musculoskeletal)? @ -Differential GI Bleed:Esophageal varices, aortoenteric fistula, Meg- Patel, gastritis, peptic ulcer disease, diverticulosis, inflammatory bowel disease, hemorrhoids, fissure, colitis, malignancy, Meckels diverticulum, this is not meant to be an all-inclusive list. EKG interpreted by me (3pts min.). @ -None X-rays interpreted by me (1pt min.). @ -None done CT interpreted by me (1pt min.). @ -CT abdomen pelvis negative for acute process. Stable post left nephrectomy and aortoiliac stent graft and mcgrath aneurysm, stable sludge in gallbladder. U/S interpreted by me (1pt. min.). @ -None done What testing was considered but not performed or refused? (CT, X-rays, U/S, labs)? Why? @ -None What meds were considered but not given or refused? Why? @ -None Did you discuss the management of the patient with other professionals (professionals i.e. , PA, HYDROELECTRIC PLANT TECHNICIAN, lab, RT, psych nurse, mental health social worker, auto hauler, teacher, information technology officer, immigration case worker)? Give summary @ -Yes, case discussed with morena Monge physicians, who accepts medical admission. Was smoking cessation discussed for >3mins.? @ -No Was critical care preformed (if so, how long)? @ -No Were there social determinants of health that impacted care today? How? (Homelessness, low income, unemployed, alcoholism, drug addiction, transportation, low edu. Level, literacy, decrease access to med. care, [facility], re hab)? @ -No Was there de-escalation of care discussed even if they declined (Discuss DNR or withdrawal of care, Hospice)? DNR status @ -No What co-morbidities impacted this encounter? (DM, HTN, Smoking, COPD, CAD, Cancer, CVA, ARF, Chemo, Hep., AIDS, mental health diagnosis, sleep apnea, morbid obesity)? @ -History of TIA patient is currently taking Eliquis Was patient admitted / discharged? Hospital course, mention meds given and route, prescriptions, significant lab abnormalities, going to OR and other pertinent info. @ -[Admitted. 83-year-old male presented to ER with a chief complaint of bright red blood per stool. History and physical exam completed. Vitals remarkable for temperature 97.6, pulse 75, respiratory rate 16, blood pressure 117/72, and oxygen saturation 92% on room air. Patient no signs of acute distress and nontoxic-appearing. No focal abdominal tenderness with normal bowel sounds. Rectal exam chaperoned by Mariana Goff RN. Exam negative from hemorrhoids or anal fissures. No gross blood on exam. Laboratory studies obtained remarkable for hemoglobin stable at 15.6, sodium 136, KACEY (BUN 31, creatinine 1.5) GFR 43. Kidney function at baseline may be due to patient having left nephrectomy. Urinalysis showing 4+ glucose, leukocyte esterases, 15 RBCs and 62 WBCs. Stool occult positive. CT abdomen pelvis performed due to rectal bleeding and positive occult stool. CT negative for acute process. Admission considered as patient is currently taking Eliquis and having unknown source of bleeding. Case discussed with morena Monge, who accepts medical admission. GI will be on consult. Patient agreeable for admission. Case discussed with ED attending, Dr. Whitaker. Undiagnosed new problem with uncertain prognosis? @ -No Drug Therapy requiring intensive monitoring for toxicity (Heparin, Nitro, Insulin, Cardizem)? @ -No Were any procedures done? @ -No Diagnosis/symptom? @ -Rectal bleeding Acute, or Chronic, or Acute on Chronic? @ -Acute Uncomplicated (without systemic symptoms) or Complicated (systemic symptoms)? @ -Uncomplicated Side effects of treatment? @ -No Exacerbation, Progression, or Severe Exacerbation? @ -No Poses a threat to life or bodily function? How? (Chest pain, [place], [place], pneumonia, PE, COPD, DKA, ARF, appy, cholecystitis, CVA, Diverticulitis, Homicidal, Suicidal, threat to staff... and all critical care pts) @ -Possibly - Lab Data Result diagrams: 09/26/23 11:02 09/26/23 11:02 Lab Results 09/26/23 09/26/23 09/26/23 Range/Units 10:55 11:02 11:02 WBC 7.7 (3.8-10.6) k/uL RBC 5.10 (4.30-5.90) m/uL Hgb 15.6 (13.0-17.5) gm/dL Hct 47.4 (39.0-53.0) % MCV 93.1 (80.0-100.0) fL MCH 30.6 (25.0-35.0) pg MCHC 32.9 (31.0-37.0) g/dL RDW 13.2 (11.5-15.5) % Plt Count 156 (150-450) k/uL MPV 8.4 Neutrophils % 64 % Lymphocytes % 22 % Monocytes % 6 % Eosinophils % 5 % Basophils % 1 % Neutrophils # 4.9 (1.3-7.7) k/uL Lymphocytes # 1.7 (1.0-4.8) k/uL Monocytes # 0.5 (0-1.0) k/uL Eosinophils # 0.4 (0-0.7) k/uL Basophils # 0.1 (0-0.2) k/uL Sodium (137-145) mmol/L Potassium (3.5-5.1) mmol/L Chloride (98-107) mmol/L Carbon Dioxide (22-30) mmol/L Anion Gap mmol/L BUN (9-20) mg/dL Creatinine (0.66-1.25) mg/dL Est GFR (CKD-EPI)AfAm (>60 ml/min/1.73 sqM) Est GFR (CKD-EPI)NonAf (>60 ml/min/1.73 sqM) Glucose (74-99) mg/dL Plasma Lactic Acid [place] (0.7-2.0) mmol/L Calcium (8.4-10.2) mg/dL Total Bilirubin (0.2-1.3) mg/dL AST (17-59) U/L ALT (4-49) U/L Alkaline Phosphatase (38-126) U/L Total Protein (6.3-8.2) g/dL Albumin (3.5-5.0) g/dL Amylase (30-110) U/L Lipase (23-300) U/L Urine Color Urine Appearance (Clear) Urine pH (5.0-8.0) Ur Specific [place] (1.001-1.035) Urine Protein (Negative) Urine Glucose (UA) (Negative) Urine Ketones (Negative) Urine Blood (Negative) Urine Nitrite (Negative) Urine Bilirubin (Negative) Urine Urobilinogen (<2.0) mg/dL Ur Leukocyte Esterase (Negative) Urine RBC (0-5) /hpf Urine WBC (0-5) /hpf Ur Squamous Epith Cells (0-4) /hpf Urine Bacteria (None) /hpf Urine Mucus (None) /hpf Urine Yeast (Budding) (None) /hpf Stool Occult Blood Positive (Negative) Blood Type A Negative Blood Type Recheck A Neg Bld Type Recheck Status No Antibody Screen NEGATIVE Spec Expiration Date 09/29/2023 - 235409/26/23 09/26/23 09/26/23 Range/Units 11:02 11:02 11:02 WBC (3.8-10.6) k/uL RBC (4.30-5.90) m/uL Hgb (13.0-17.5) gm/dL Hct (39.0-53.0) % MCV (80.0-100.0) fL MCH (25.0-35.0) pg MCHC (31.0-37.0) g/dL RDW (11.5-15.5) % Plt Count (150-450) k/uL MPV Neutrophils % % Lymphocytes % % Monocytes % % Eosinophils % % Basophils % % Neutrophils # (1.3-7.7) k/uL Lymphocytes # (1.0-4.8) k/uL Monocytes # (0-1.0) k/uL Eosinophils # (0-0.7) k/uL Basophils # (0-0.2) k/uL Sodium 136 L (137-145) mmol/L Potassium 4.3 (3.5-5.1) mmol/L Chloride 107 (98-107) mmol/L Carbon Dioxide 21 L (22-30) mmol/L Anion Gap 8 mmol/L BUN 31 H (9-20) mg/dL Creatinine 1.50 H (0.66-1.25) mg/dL Est GFR (CKD-EPI)AfAm 50 (>60 ml/min/1.73 sqM) Est GFR (CKD-EPI)NonAf 43 (>60 ml/min/1.73 sqM) Glucose 225 H (74-99) mg/dL Plasma Lactic Acid [place] 1.4 (0.7-2.0) mmol/L Calcium 8.9 (8.4-10.2) mg/dL Total Bilirubin 0.8 (0.2-1.3) mg/dL AST 23 (17-59) U/L ALT 15 (4-49) U/L Alkaline Phosphatase 76 (38-126) U/L Total Protein 6.5 (6.3-8.2) g/dL Albumin 3.9 (3.5-5.0) g/dL Amylase 38 (30-110) U/L Lipase 60 (23-300) U/L Urine Color Colorless Urine Appearance Clear (Clear) Urine pH 5.5 (5.0-8.0) Ur Specific [place] 1.027 (1.001-1.035) Urine Protein Negative (Negative) Urine Glucose (UA) 4+ H (Negative) Urine Ketones Negative (Negative) Urine Blood Small H (Negative) Urine Nitrite Negative (Negative) Urine Bilirubin Negative (Negative) Urine Urobilinogen <2.0 (<2.0) mg/dL Ur Leukocyte Esterase Large H (Negative) Urine RBC 15 H (0-5) /hpf Urine WBC 62 H (0-5) /hpf Ur Squamous Epith Cells 2 (0-4) /hpf Urine Bacteria Rare H (None) /hpf Urine Mucus Rare H (None) /hpf Urine Yeast (Budding) Occasional H (None) /hpf Stool Occult Blood (Negative) Blood Type Blood Type Recheck Bld Type Recheck Status Antibody Screen Spec Expiration Date - Radiology Data Radiology results: report reviewed, image reviewed Disposition Clinical Impression: Rectal bleeding Disposition: ADMITTED IP TO THIS [facility] Condition: Stable Time of Disposition: 13:40
[2023-09-26 11:25] LABS: Basophils # (A) 0.1 k/uL (0-0.2); Basophils % (A) 1 %; Eosinophils # (A) 0.4 k/uL (0-0.7); Eosinophils % (A) 5 %; HCT 47.4 % (39.0-53.0); HGB 15.6 gm/dL (13.0-17.5); Lymphocytes # (A) 1.7 k/uL (1.0-4.8); Lymphocytes % (A) 22 %; MCH 30.6 pg (25.0-35.0); MCHC 32.9 g/dL (31.0-37.0); MCV 93.1 fL (80.0-100.0); Mean Platelet Volume 8.4; Monocytes # (A) 0.5 k/uL (0-1.0); Monocytes % (A) 6 %; Neutrophils # (A) 4.9 k/uL (1.3-7.7); Neutrophils % (A) 64 %; Platelet Count 156 k/uL (150-450); RDW 13.2 % (11.5-15.5); WBC 7.7 k/uL (3.8-10.6)
[2023-09-26 11:33] LABS: Appearance,Urine Clear (Clear); Bacteria,Urine Rare /hpf; Bilirubin,Urine Negative (Negative); Blood,Urine Small (Negative); Budding Yeast,Urine Occasional /hpf; Color,Urine Colorless; Glucose,Urine (UA) 4+ (Negative); Ketones,Urine Negative (Negative); Leukocyte Esterase,Urine Large (Negative); Mucus,Urine Rare /hpf; Nitrite,Urine Negative (Negative); PH, Urine 5.5 (5.0-8.0); Protein,Urine Negative (Negative); RBC,Urine 15 /hpf (0-5); Specific Gravity,Urine 1.027 (1.001-1.035); Squamous Epithelial Cell,Urine 2 /hpf (0-4); Urobilinogen,Urine <2.0 mg/dL (<2.0); WBC,Urine 62 /hpf (0-5)
[2023-09-26 11:41] LABS: ALT 15 U/L (4-49); AST 23 U/L (17-59); African American GFR (CKD) 50 (>60 ml/min/1.73 sqM); Albumin 3.9 g/dL (3.5-5.0); Alkaline Phosphatase 76 U/L (38-126); Amylase 38 U/L (30-110); Anion Gap 8 mmol/L; Blood Urea Nitrogen 31 mg/dL (9-20); Calcium 8.9 mg/dL (8.4-10.2); Carbon Dioxide 21 mmol/L (22-30); Chloride 107 mmol/L (98-107); Glucose 225 mg/dL (74-99); Lipase 60 U/L (23-300); Non-African American GFR(CKD) 43 (>60 ml/min/1.73 sqM); Potassium 4.3 mmol/L (3.5-5.1); Sodium 136 mmol/L (137-145); Total Bilirubin 0.8 mg/dL (0.2-1.3); Total Protein 6.5 g/dL (6.3-8.2)
--- NOTE | 2023-09-26 12:57 | CT ---
EXAMINATION TYPE: CT abdomen pelvis wo con DATE OF EXAM: 09/26/2023 COMPARISON: 09/26/2022 HISTORY: rectal bleeding CT DLP: 1073.4 mGycm Automated exposure control for dose reduction was used. TECHNIQUE: Helical acquisition of images was performed from the lung bases through the pelvis. FINDINGS: The lungs are clear. There is stable sludge within the gallbladder but no gallbladder distention, wall thickening or peric holecystic fluid. There is no biliary ductal dilatation. There is no organomegaly of the liver, pancreas, spleen or adrenal glands. There is surgical absence of the left kidney. There is no right renal calcification or hydronephrosis. There is an aorto iliac stent graft unchanged. The [place] aneurysm is 7.8 x 6.7 cm and is essentially unchanged in size.. The bowel loops are normal in caliber is no evidence of obstruction. No inflammatory changes are iden tified in the mesentery and there is no free intraperitoneal air or fluid. There is no pelvic mass, free fluid, abscess or adenopathy. The osseous structures and soft tissues are unremarkable. IMPRESSION: 1. Status post left nephrectomy. 2. Stable aortoiliac stent graft and [place] aneurysm. 3. Stable sludge in the gallbladder 4. No acute changes within the abdomen or pelvis.
[2023-09-26] MEDS ORDERED: NALOXONE 0.4 MG/ML 1 ML VIAL IV PRN (13:27)
[2023-09-26] MEDS ORDERED: ACETAMINOPHEN TAB 325 MG TAB PO PRN (13:27)
[2023-09-26] MEDS: SODIUM CHLORIDE 0.9% 1,000 ML IV SCH (13:46)
--- NOTE | 2023-09-26 14:07 | P.HPIM ---
History of Present Illness H&P Date: 09/26/23 History of Presenting Illness: Patient is a very pleasant 83-year-old male with a past medical history of hypertension, hyperlipidemia, abdominal aortic aneurysm status post repair, [id number] diabetes mellitus, CKD stage IIIb with history of renal cancer status post left nephrectomy BPH and currently on Eliquis that he reports is managed by his criminal justice department chair but was unsure if he takes the Eliquis for a previous blood clot or diagnosis of atrial fibrillation. He presented to the emergency department with a chief complaint of bright red blood per rectum. Patient reports over the past 2 weeks every time he has a bowel movement or wipes he has noticed bright red blood in the toilet and on the toilet paper. He denies experiencing any abdominal pain or discomfort, cramping, history of hemorrhoids or anal fissures, nausea, decreased appetite, unintentional weight loss, dizziness, lightheadedness, chest pain, palpitations, or shortness of breath. He reports his last colonoscopy was approximately 10 to 15 years ago or more. Upon arrival to our facility patient underwent evaluation in the emergency department. Vital signs upon arrival show blood pressure 117/72, heart rate 75, respiratory rate 16, temp 97.6 F, and SpO2 of 92% on room air. Labs were completed and reviewed. CBC unremarkable with a stable hemoglobin of 15.6 and platelet count of 156. BMP showing mild hypocarbia with bicarb of 21 and elevated renal function with BUN of 31, creatinine 1.50, and GFR 43. Blood glucose was elevated at 225. Lactic acid 1.4. Liver profile unremarkable. Urinalysis positive for glucose, blood, leukocytes, 15 RBCs, and 62 WBCs. Fecal occult was positive. CT was negative for acute intra-abdominal process. Patient was admitted under our services with consultation to gastroenterology. Review of systems: Pertinent positives and negatives as discussed in HPI, a complete review of systems was performed and all other systems are negative. Physical exam: Vital signs reviewed and stable. General: Nontoxic, no distress and appears stated age. Obese. Derm: Skin warm and dry, normal coloration for ethnicity. Head: Atraumatic, normocephalic and symmetric. Eyes: EOMs intact, no lid lag, and anicteric sclera Mouth: no lip lesions, mucus membranes moist Cardiovascular: regular rate and rhythm with normal S1S2, no murmur, positive posterior tibial pulses bilaterally, and cap refill < 2 seconds. Lungs: Respirations even, regular, and unlabored on room air. Lungs CTA bilaterally, no rhonchi, no rales, no wheezing, and no accessory muscle usage. Abdominal: soft, nontender to palpation, no guarding, no appreciable organomegaly Ext: ROM intact. No gross muscle atrophy, no edema, no contractures Neuro: Speech clear, face symmetrical and CN II-XII grossly intact with no noted focal neuro deficits Psych: Alert and oriented to person, place, time, and situation. Appropriate and pleasant affect. Assessment and Plan of Care: Hematochezia with reports of bright red blood per rectum -Hemoglobin currently stable at 15.6. -Eliquis held at this time. -Will trend CBC and monitor hemoglobin closely and transfuse as indicated for any hemoglobins less than 7. -Frame Gate Mortiser Operator consulted, appreciate recommendations -Telemetry monitoring -Clear liquid diet pending further recommendations from gastroenterology. -DVT prophylaxis with MICAELA hose and SCDs. -Gentle IV fluid hydration with 0.9% normal saline at 75 cc/h. -GI prophylaxis with Protonix 40 mg daily. Diabetes mellitus with hyperglycemia -Continue Jardiance and we will hold glipizide and place patient on glycemic protocol with NovoLog sliding scale at this time. -Follow-up on hemoglobin A1c results. Asymptomatic bacteriuria -No need for antibiotics as patient is asymptomatic from any urinary complaints. CKD stage IIIb with history of renal cancer status post left nephrectomy -Renal function currently stable with BUN of 31, creatinine 1.50, and GFR 43. Hypertension -Patient to continue daily medication regimen with lisinopril 5 mg daily and carvedilol 25 mg twice daily. Hyperlipidemia -Continue daily medication regimen with atorvastatin 40 mg nightly. BPH -Continue daily medication regimen with finasteride 5 mg nightly and Flomax 0.4 mg nightly. Data and imaging reviewed: -As stated above in HPI The patient is admitted with an anticipated less than 2 midnight stay for evaluation of her GI bleed CODE STATUS: Full code DVT prophylaxis: SCDs and MICAELA hose secondary to GI bleed Anticipated discharge date: Likely 24 to [address]: Home Patient was seen independently by Nurse Practitioner. This document was prepared using [employer] dictation software. Please allow for errors in customer success advocate while rare they do occur. Saleem Monique, MEDICAL DOSIMETRIST rendered care for this patient independently, reviewed the findings and plan as documented in the note above. I did not physically speak with or examine the patient on this date. Past Medical History Past Medical History: COPD, CVA/TIA, Diabetes Mellitus, Hyperlipidemia, Hypertension Additional Past Medical History / Comment(s): kidney ca, numerous TIA's in 2013, (R) femur fx. History of Any Multi-Drug Resistant Organisms: None Reported Past Surgical History: Orthopedic Surgery Additional Past Surgical History / Comment(s): kidney removal, aneurysm repair, broken femur 2013 Past Anesthesia/Blood Transfusion Reactions: No Reported Reaction Past Psychological History: No Psychological Hx Reported Past Alcohol Use History: None Reported Past Drug Use History: None Reported - Past Family History Father Family Medical History: Cancer Additional Family Medical History / Comment(s): lung cancer Mother Additional Family Medical History / Comment(s): sarc Medications and Allergies Home Medications Medication Instructions Recorded Confirmed Type Tamsulosin HCl [Flomax] 0.4 mg PO HS 11/21/13 09/26/23 History Carvedilol [Coreg] 25 mg PO BID-W/MEALS 10/06/15 09/26/23 History Cetirizine HCl [Zyrtec] 10 mg PO DAILY 10/06/15 09/26/23 History HYDROcodone/APAP 7.5-325MG [[place] 1 tab PO 5XD 10/06/15 09/26/23 History 7.5-325] Ergocalciferol (Vitamin D2) 50,000 unit PO LEON 11/10/16 09/26/23 History [Vitamin D2] Finasteride [Proscar] 5 mg PO HS 11/10/16 09/26/23 History Apixaban [Eliquis] 5 mg PO BID 04/23/17 09/26/23 History Docusate [Colace] 100 mg PO BID PRN 04/23/17 09/26/23 History calcitrioL [Rocaltrol] 0.25 mcg PO SA 04/23/17 09/26/23 History glipiZIDE [Glucotrol] 10 mg PO AC-TID 04/23/17 09/26/23 History lisinopriL [Zestril] 5 mg PO DAILY 04/23/17 09/26/23 History Alogliptin Benzoate [Alogliptin] 12.5 mg PO DAILY 09/26/23 09/26/23 History Atorvastatin [Lipitor] 40 mg PO HS 09/26/23 09/26/23 History Empagliflozin [Jardiance] 25 mg PO DAILY 09/26/23 09/26/23 History Fluticasone Nasal [place] [Flonase 1 spray EA NOSTRIL BID PRN 09/26/23 09/26/23 History Nasal [place]] Fluticasone Propion/Salmeterol 1 puff INHALATION RT-BID 09/26/23 09/26/23 Histo [place] [Advair 250-50 Diskus] Furosemide [Lasix] 20 mg PO SUFRSA 09/26/23 09/26/23 History Hydrocortisone Oint 1 applic TOPICAL BID PRN 09/26/23 09/26/23 History [Hydrocortisone 2.5% Oint] Ketoconazole 2% Cream [Nizoral 2%] 1 applic TOPICAL BID 09/26/23 09/26/23 History Petrolatum, White [Aquaphor] 1 applic TOPICAL BID 09/26/23 09/26/23 History Pantoprazole [Protonix] 40 mg PO DAILY 30 Days #30 tab 09/27/23 Rx Allergies Allergy/AdvReac Type Severity Reaction Status Date / Time amoxicillin [From Augmentin] Allergy Rash/Hives Verified 09/26/23 13:31 clavulanic acid Allergy Rash/Hives Verified 09/26/23 13:31 [From Augmentin] erythromycin base Allergy Unknown Verified 09/26/23 13:31 levofloxacin [From Levaquin] Allergy Unknown Verified 09/26/23 13:31 sulfamethoxazole Allergy Rash/Hives Verified 09/26/23 13:31 [From Bactrim] trimethoprim [From Bactrim] Allergy Rash/Hives Verified 09/26/23 13:31 cephalexin monohydrate AdvReac fever, Verified 09/26/23 13:31 [From Keflex] chills, cold sweats Physical Exam Vitals: Vital Signs Temp Pulse Resp BP Pulse Ox 09/26/23 10:31 97.6 F 75 16 117/72 92 L Intake and Output 09/25/23 09/26/23 09/26/23 22:59 06:59 14:59 Other: Voiding Method Toilet Weight 122.47 kg Results CBC & Chem 7: 09/27/23 04:55 09/27/23 04:55 Labs: Abnormal Lab Results - Last 24 Hours (Table) 09/26/23 09/26/23 Range/Units 11:02 11:02 Sodium 136 L (137-145) mmol/L Carbon Dioxide 21 L (22-30) mmol/L BUN 31 H (9-20) mg/dL Creatinine 1.50 H (0.66-1.25) mg/dL Glucose 225 H (74-99) mg/dL Urine Glucose (UA) 4+ H (Negative) Urine Blood Small H (Negative) Ur Leukocyte Esterase Large H (Negative) Urine RBC 15 H (0-5) /hpf Urine WBC 62 H (0-5) /hpf Urine Bacteria Rare H (None) /hpf Urine Mucus Rare H (None) /hpf Urine Yeast (Budding) Occasional H (None) /hpf
[2023-09-26] MEDS ORDERED: DOCUSATE 100 MG CAP PO PRN (14:10)
[2023-09-26] MEDS ORDERED: FLUTICASONE 50MCG/SPRAY NASAL 16GM EA NOSTRIL PRN (14:10)
[2023-09-26] MEDS ORDERED: DEXTROSE 50% SYRINGE 50 ML IVP PRN ×2 (17:03)
[2023-09-26] MEDS: HYDROcodone/APAP 7.5-325MG 1 EACH TAB PO SCH (17:10)
[2023-09-26] MEDS: carvediloL 12.5 MG TAB PO SCH (17:11)
[2023-09-26 17:38] LABS: Glucose,Whole Blood 129 mg/dL (70-110)
[2023-09-26] MEDS: INSULIN ASPART (NovoLOG) 100 UNIT/ML VIAL SQ SCH (17:49)
[2023-09-26 19:34] LABS: HCT 48.6 % (39.0-53.0); HGB 15.7 gm/dL (13.0-17.5); MCH 30.2 pg (25.0-35.0); MCHC 32.4 g/dL (31.0-37.0); MCV 93.3 fL (80.0-100.0); Mean Platelet Volume 8.9; Platelet Count 165 k/uL (150-450); RDW 13.5 % (11.5-15.5)
[2023-09-26] MEDS: SYMBICORT 80-4.5 MCG INHALER INHALATION SCH (20:19)
[2023-09-26 20:34] LABS: Glucose,Whole Blood 230 mg/dL (70-110)
[2023-09-26] MEDS: ATORVASTATIN 40 MG TAB PO SCH (21:30)
[2023-09-26] MEDS: TAMSULOSIN 0.4 MG CAP.ER.24H PO SCH (21:30)
[2023-09-26] MEDS: FINASTERIDE 5 MG TAB PO SCH (21:38)
[2023-09-27 06:34] LABS: Glucose,Whole Blood 193 mg/dL (70-110)
[2023-09-27 06:41] VITALS: BP 121/70; PULSE 71; RESP 18; TEMP 98.1
--- NOTE | 2023-09-27 08:12 | P.CONS ---
History of Present Illness - Reason for Consult Consult date: 09/27/23 Rectal bleeding Requesting physician: Irma El - Chief Complaint Rectal bleeding - History of Present Illness This is a pleasant 83-year-old male with past medical history including coronary artery disease on Eliquis, COPD, CVA/TIA, diabetes mellitus, hyperlipidemia, hypertension and history of kidney cancer status post left nephrectomy presented to the emergency department with complaints rectal bleeding with bowel movements over the last 2 weeks duration. He states he suffers with constipation on and off and often strains. States that he has noticed some bright red blood in the toilet as well as on toilet paper with his bowel movements. Denies any abdomi nal pain, nausea or vomiting. He had a CT of the abdomen and pelvis without contrast with no acute changes within the abdomen or pelvis. Denies any history of colitis or Crohn's disease. Last colonoscopy he reports was 4 to 5 years ago and states it was normal. No records currently available. Hemoglobin has been stable since admission at 15.7, platelet count 165,000. He denies any shortness of breath, chest pain, weakness, fevers or chills. Currently no abdominal pain, no rectal bleeding at this time. Review of Systems REVIEW OF SYSTEMS: CARDIOPULMONARY: No chest pain or shortness of breath. Gastrointestinal: No abdominal pain. No nausea or vomiting. No hematemesis, coffee-ground emesis. Rectal bleeding with bowel movements, bright red noted in toilet and on toilet paper. GENITOURINARY: No dysuria or hematuria. MUSCULOSKELETAL: Reports normal range of motion. SKIN: No rashes. No jaundice. ENDOCRINE: No chills, fevers. No excessive weight gain or loss. No polydipsia or polyuria. PSYCHIATRIC: Unremarkable. NEUROLOGY: No change in mental status. Denies dizziness, headache. ENT: Vision unremarkable. CONSTITUTIONAL: No recent weight loss. No fever, chills, night sweats. Past Medical History Past Medical History: COPD, CVA/TIA, Diabetes Mellitus, Hyperlipidemia, Hypertension Additional Past Medical History / Comment(s): kidney ca, numerous TIA's in 2013, (R) femur fx. History of Any Multi-Drug Resistant Organisms: None Reported Past Surgical History: Orthopedic Surgery Additional Past Surgical History / Comment(s): kidney removal, aneurysm repair, broken femur 2013 Past Anesthesia/Blood Transfusion Reactions: No Reported Reaction Past Psychological History: No Psychological Hx Reported Smoking Status: Former smoker Past Alcohol Use History: None Reported Past Drug Use History: None Reported - Past Family History Father Family Medical History: Cancer Additional Family Medical History / Comment(s): lung cancer Mother Additional Family Medical History / Comment(s): sarc Medications and Allergies Home Medications Medication Instructions Recorded Confirmed Type Tamsulosin HCl [Flomax] 0.4 mg PO HS 11/21/13 09/26/23 History Carvedilol [Coreg] 25 mg PO BID-W/MEALS 10/06/15 09/26/23 History Cetirizine HCl [Zyrtec] 10 mg PO DAILY 10/06/15 09/26/23 History HYDROcodone/APAP 7.5-325MG [[place] 1 tab PO 5XD 10/06/15 09/26/23 History 7.5-325] Ergocalciferol (Vitamin D2) 50,000 unit PO LEON 11/10/16 09/26/23 History [Vitamin D2] Finasteride [Proscar] 5 mg PO HS 11/10/16 09/26/23 History Apixaban [Eliquis] 5 mg PO BID 04/23/17 09/26/23 History Docusate [Colace] 100 mg PO BID PRN 04/23/17 09/26/23 History calcitrioL [Rocaltrol] 0.25 mcg PO SA 04/23/17 09/26/23 History glipiZIDE [Glucotrol] 10 mg PO AC-TID 04/23/17 09/26/23 History lisinopriL [Zestril] 5 mg PO DAILY 04/23/17 09/26/23 History Alogliptin Benzoate [Alogliptin] 12.5 mg PO DAILY 09/26/23 09/26/23 History Atorvastatin [Lipitor] 40 mg PO HS 09/26/23 09/26/23 History Empagliflozin [Jardiance] 25 mg PO DAILY 09/26/23 09/26/23 History Fluticasone Nasal [place] [Flonase 1 spray EA NOSTRIL BID PRN 09/26/23 09/26/23 History Nasal [place]] Fluticasone Propion/Salmeterol 1 puff INHALATION RT-BID 09/26/23 09/26/23 History [Advair 250-50 Diskus] Furosemide [Lasix] 20 mg PO SUFRSA 09/26/23 09/26/23 History Hydrocortisone Oint 1 applic TOPICAL BID PRN 09/26/23 09/26/23 History [Hydrocortisone 2.5% Oint] Ketoconazole 2% Cream [Nizoral 2%] 1 applic TOPICAL BID 09/26/23 09/26/23 Histor y Petrolatum, White [Aquaphor] 1 applic TOPICAL BID 09/26/23 09/26/23 History Allergies Allergy/AdvReac Type Severity Reaction Status Date / Time amoxicillin [From Augmentin] Allergy Rash/Hives Verified 09/26/23 13:31 clavulanic acid Allergy Rash/Hives Verified 09/26/23 13:31 [From Augmentin] erythromycin base Allergy Unknown Verified 09/26/23 13:31 levofloxacin [From Levaquin] Allergy Unknown Verified 09/26/23 13:31 sulfamethoxazole Allergy Rash/Hives Verified 09/26/23 13:31 [From Bactrim] trimethoprim [From Bactrim] Allergy Rash/Hives Verified 09/26/23 13:31 cephalexin monohydrate AdvReac fever, Verified 09/26/23 13:31 [From Keflex] chills, cold sweats Physical Exam Vitals: Vital Signs Temp Pulse Pulse Resp BP BP BP 09/27/23 06:40 98.1 F 71 18 121/70 09/27/23 01:14 97.9 F 69 16 126/78 09/26/23 19:06 98.5 F 87 17 136/83 09/26/23 17:50 97.5 F L 63 16 127/76 09/26/23 17:00 98.7 F 145/90 09/26/23 16:00 126/90 09/26/23 15:00 142/91 09/26/23 14:00 139/93 09/26/23 12:00 149/88 09/26/23 11:00 149/88 09/26/23 10:42 09/26/23 10:31 97.6 F 75 16 117/72 Pulse Ox 09/27/23 06:40 94 L 09/27/23 01:14 92 L 09/26/23 19:06 94 L 09/26/23 17:50 94 L 09/26/23 17:00 95 09/26/23 16:00 96 09/26/23 15:00 94 L 09/26/23 14:00 95 09/26/23 12:00 09/26/23 11:00 09/26/23 10:42 93 L 09/26/23 10:31 92 L Intake and Output 09/26/23 09/27/23 09/27/23 22:59 06:59 14:59 Intake Total 118 Balance 118 Intake: Oral 118 Other: # Voids 1 2 Weight 122.47 kg General appearance: The patient is alert, oriented, appears in no acute distress. HET: Head is normocephalic and atraumatic. Conjunctiva pink. Sclera anicteric. Neck: Supple without lymphadenopathy. Trachea midline. Heart: Regular. Lungs: Equal expansion, normal respiratory effort. Abdomen: Soft, nontender, nondistended. Skin: No rashes. No jaundice. Extremities: Normal skin color and turgor. No pedal edema. Neurological: No focal deficits. Alert and oriented x3. Results CBC & Chem 7: 09/26/23 18:55 09/26/23 11:02 Labs: Abnormal Lab Results - Last 24 Hours (Table) 09/26/23 09/26/23 09/26/23 Range/Units 11:02 11:02 17:37 Sodium 136 L (137-145) mmol/L Carbon Dioxide 21 L (22-30) mmol/L BUN 31 H (9-20) mg/dL Creatinine 1.50 H (0.66-1.25) mg/dL Glucose 225 H (74-99) mg/dL POC Glucose (mg/dL) 129 H (70-110) mg/dL Urine Glucose (UA) 4+ H (Negative) Urine Blood Small H (Negative) Ur Leukocyte Esterase Large H (Negative) Urine RBC 15 H (0-5) /hpf Urine WBC 62 H (0-5) /hpf Urine Bacteria Rare H (None) /hpf Urine Mucus Rare H (None) /hpf Urine Yeast (Budding) Occasional H (None) /hpf 09/26/23 09/27/23 Range/Units 20:33 06:33 Sodium (137-145) mmol/L Carbon Dioxide (22-30) mmol/L BUN (9-20) mg/dL Creatinine (0.66-1.25) mg/dL Glucose (74-99) mg/dL POC Glucose (mg/dL) 230 H 193 H (70-110) mg/dL Urine Glucose (UA) (Negative) Urine Blood (Negative) Ur Leukocyte Esterase (Negative) Urine RBC (0-5) /hpf Urine WBC (0-5) /hpf Urine Bacteria (None) /hpf Urine Mucus (None) /hpf Urine Yeast (Budding) (None) /hpf CT scan - abdomen: report reviewed (Status post left nephrectomy. Stable aortoiliac stent graft and [place] aneurysm. Stable sludge in the gallbladder, no acute changes within the abdomen or pelvis.) Assessment and Plan (1) Rectal bleeding Narrative/Plan: 83-year-old male who is on chronic anticoagulation with Eliquis last taken yesterday presents with rectal bleeding over the last 2 weeks duration. This in a patient who states that he is often constipated and has to strain noting bright red blood in the toilet and on tissue with wiping. Last colonoscopy 4 to 5 years ago that was normal. CT abdomen pelvis without any acute findings. Likely secondary to hemorrhoids, possible anal fissure or tear. Hemoglobin stable. Recommend outpatient colonoscopy, will try to set up for early next week. Patient will need to remain off anticoagulation. He is agreeable with plan. Current Visit: Yes Status: Acute Code(s): K62.5 - HEMORRHAGE OF ANUS AND RECTUM SNOMED Code(s): 31385724 (2) Constipation Current Visit: Yes Status: Acute Code(s): K59.00 - CONSTIPATION, UNSPECIFIED SNOMED Code(s): 50233658 (3) Chronic anticoagulation Current Visit: Yes Status: Acute Code(s): Z79.01 - OIL TRANSPORT DRIVER (CURRENT) USE OF ANTICOAGULANTS SNOMED Code(s): 375739162 (4) Coronary artery disease Current Visit: Yes Status: Acute Code(s): I25.10 - ATHSCL HEART DISEASE OF [place] CORONARY ARTERY W/O ANG PCTRS SNOMED Code(s): 09807300 (5) History of kidney cancer Current Visit: No Status: Acute Code(s): Z85.528 - PERSONAL HISTORY OF OTHER MALIGNANT NEOPLASM OF KIDNEY SNOMED Code(s): 57420634833263 (6) COPD (chronic obstructive pulmonary disease) Current Visit: Yes Status: Acute Code(s): J44.9 - CHRONIC OBSTRUCTIVE PULMO NARY DISEASE, UNSPECIFIED SNOMED Code(s): 41005632 Plan: 1. Continue symptomatic and supportive care 2. Continue to hold anticoagulation 3. Diet as tolerated 4. Recommend stool softeners 5. Recommend outpatient colonoscopy, will try to set up for Saturday at [facility]. Patient will need to continue to hold anticoagulation. He is agreeable with plan. Thank you for this consultation, we will sign off at this time. Dr. Elsy Swenson I agree with the dictator's note, documented as a scribe by Adelita Levin.
[2023-09-27 08:26] LABS: HCT 46.6 % (39.6-50.0); HGB 15.2 g/dL (13.0-17.0); MCH 30.1 pg (27.0-32.0); MCHC 32.6 g/dL (32.0-37.0); MCV 92.3 FL (80.0-97.0); Mean Platelet Volume 10.6 FL (9.5-12.2); NRBC Per 100 WBC 0 X 10*3/uL (0.00-0.01); Platelet Count 170 X 10*3/uL (140-440); RBC 5.05 X 10*6/uL (4.40-5.60); RDW 13.4 % (11.5-14.5); WBC 7.42 X 10*3/uL (4.50-10.00)
[2023-09-27 08:51] LABS: BUN/Creat Ratio 17.78 Ratio (12.00-20.00); Calcium 8.8 mg/dL (8.7-10.3); Carbon Dioxide 24.7 mmol/L (21.6-31.8); Chloride 101 mmol/L (96-109); Glucose 222 mg/dL (70-110); Potassium 4.2 mmol/L (3.5-5.5); Sodium 137 mmol/L (135-145)
[2023-09-27] MEDS: LORATADINE 10 MG TAB PO SCH (09:04)
[2023-09-27] MEDS: DAPAGLIFLOZIN PROPANEDIOL 10 MG TABLET PO SCH (09:04)
[2023-09-27] MEDS: LINAGLIPTIN 5 MG TABLET PO SCH (09:04)
[2023-09-27] MEDS: lisinopriL 5 MG TAB PO SCH (09:04)
[2023-09-27] MEDS: PANTOPRAZOLE 40 MG/10 ML VIAL IVP SCH (09:05)
--- NOTE | 2023-09-27 13:39 | P.DS ---
Providers Date of admission: 09/26/23 13:02 Expected date of discharge: 09/27/23 Attending physician: Ambrosio Santiago MD Consults: 09/26/23 13:27 Consult Physician Urgent Consulting Provider: Fara Swenson Consult Reason/Comments: rectal bleeding Do you want consulting provider notified?: Yes Primary care physician: [facility] Hospital Course: Discharge Diagnosis: Hematochezia with reports of bright red blood per rectum. Hemoglobin trended throughout the night resulting at 10.6, 15.7, and 15.2. Patient was seen and evaluated by high school social studies tutor stating they will schedule patient for outpatient colonoscopy on 09/30/2023 and requesting patient hold Eliquis until completion of procedure and further recommendations by gastroenterology at that time. Patient remains free from any other complaints at this time including dizziness, lightheadedness, chest pain, palpitations, shortness of breath weakness, or fatigue. He is medically stable for discharge at this time. Patient instructed to continue to hold Eliquis and that gastroenterology office will be notifying him on bowel prep and time of procedure. Diabetes mellitus with hyperglycemia. Resume Jardiance 25 mg daily, glipizide 10 mg 3 times daily and alogliptin 12.5 mg daily. Asymptomatic bacteriuria. No need for antibiotics as patient is asymptomatic from any urinary complaints. CKD stage IIIb with history of renal cancer status post left nephrectomy. Renal function currently stable with BUN of 32.0, creatinine 1.8, GFR of 37. Hypertension. Patient to continue daily medication regimen with lisinopril 5 mg daily and carvedilol 25 mg twice daily. Hyperlipidemia. Continue daily medication regimen with atorvastatin 40 mg nightly. BPH. Continue daily medication regimen with finasteride 5 mg nightly and Flomax 0.4 mg nightly. Hospital Course: Patient is a very pleasant 83-year-old male with a past medical history of hypertension, hyperlipidemia, abdominal aortic aneurysm status post repair, [id number] diabetes mellitus, CKD stage IIIb with history of renal cancer status post left nephrectomy BPH and currently on Eliquis that he reports is managed by his paint and table edger but was unsure if he takes the Eliquis for a previous blood clot or diagnosis of atrial fibrillation. He presented to the emergency department with a chief complaint of bright red blood per rectum. Patient reports over the past 2 weeks every time he has a bowel movement or wipes he has noticed bright red blood in the toilet and on the toilet paper. He denies experiencing any abdominal pain or discomfort, cramping, history of hemorrhoids or anal fissures, nausea, decreased appetite, unintentional weight loss, dizziness, lightheadedness, chest pain, palpitations, or shortness of breath. He reports his last colonoscopy was approximately 10 to 15 years ago or more. Upon arrival to our facility patient underwent evaluation in the emergency department. Vital signs upon arrival show blood pressure 117/72, heart rate 75, respiratory rate 16, temp 97.6 F, and SpO2 of 92% on room air. Labs were completed and reviewed. CBC unremarkable with a stable hemoglobin of 15.6 and platelet count of 156. BMP showing mild hypocarbia with bicarb of 21 and elevated renal function with BUN of 31, creatinine 1.50, and GFR 43. Blood glucose was elevated at 225. Lactic acid 1.4. Liver profile unremarkable. Urinalysis positive for glucose, blood, leukocytes, 15 RBCs, and 62 WBCs. Fecal occult was positive. CT was negative for acute intra-abdominal process. Patient was admitted under our services with consultation to gastroenterology. Hemoglobin trended throughout the night resulting at 10.6, 15.7, and 15.2. Patient was seen and evaluated by high school social studies tutor stating they will schedule patient for outpatient colonoscopy on 09/30/2023 and requesting patient hold Eliquis until completion of procedure and further recommendations by gastroenterology at that time. Patient remains free from any other complaints at this time including dizziness, lightheadedness, chest pain, palpitations, shortness of breath weakness, or fatigue. He is medically stable for discharge at this time. Patient instructed to continue to hold Eliquis and that gastroenterology office will be notifying him on bowel prep and time of procedure. Physical exam: Vital signs reviewed and stable. General: Nontoxic, no distress and appears stated age. Obese. Derm: Skin warm and dry, normal coloration for ethnicity. Head: Atraumatic, normocephalic and symmetric. Eyes: EOMs intact, no lid lag, and anicteric sclera Mouth: no lip lesions, mucus membranes moist Cardiovascular: regular rate and rhythm with normal S1S2, no murmur, positive posterior tibial pulses bilaterally, and cap refill < 2 seconds. Lungs: Respirations even, regular, and unlabored on room air. Lungs CTA bilaterally, no rhonchi, no rales, no wheezing, and no accessory muscle usage. Abdominal: soft, nontender to palpation, no guarding, no appreciable organomegaly Ext: ROM intact. No gross muscle atrophy, no edema, no contractures Neuro: Speech clear, face symmetrical and CN II-XII grossly intact with no noted focal neuro deficits Psych: Alert and oriented to person, place, time, and situation. Appropriate and pleasant affect. A total of 34 minutes of time were spent preparing this complex discharge summary. Pt was discharged on 09/27/2023 at 9:32 AM. Patient was seen independently by Nurse Practitioner. This document was prepared using [employer] dictation software. Please allow for errors in vertical punch operator while rare they do occur. Saleem Amaya NP rendered care for this patient independently, reviewed the findings and plan as documented in the note above. I did not physically speak with or examine the patient on this date. Patient Condition at Discharge: Stable Plan - Discharge Summary New Discharge Prescriptions: New Pantoprazole [Protonix] 40 mg PO DAILY 30 Days #30 tab Continue Tamsulosin HCl [Flomax] 0.4 mg PO HS HYDROcodone/APAP 7.5-325MG [[place] 7.5-325] 1 tab PO 5XD Cetirizine HCl [Zyrtec] 10 mg PO DAILY Carvedilol [Coreg] 25 mg PO BID-W/MEALS Finasteride [Proscar] 5 mg PO HS Ergocalciferol (Vitamin D2) [Vitamin D2] 50,000 unit PO LEON Docusate [Colace] 100 mg PO BID PRN PRN Reason: Constipation glipiZIDE [Glucotrol] 10 mg PO AC-TID lisinopriL [Zestril] 5 mg PO DAILY calcitrioL [Rocaltrol] 0.25 mcg PO SA Fluticasone Nasal [place] [Flonase Nasal [place]] 1 spray EA NOSTRIL BID PRN PRN Reason: Allergy Symptoms Fluticasone Propion/Salmeterol [Advair 250-50 Diskus] 1 puff INHALATION RT- BID Furosemide [Lasix] 20 mg PO SUFRSA Hydrocortisone Oint [Hydrocortisone 2.5% Oint] 1 applic TOPICAL BID PRN PRN Reason: flare ups Ketoconazole 2% Cream [Nizoral 2%] 1 applic TOPICAL BID Petrolatum, White [Aquaphor] 1 applic TOPICAL BID Alogliptin Benzoate [Alogliptin] 12.5 mg PO DAILY Atorvastatin [Lipitor] 40 mg PO HS Empagliflozin [Jardiance] 25 mg PO DAILY No Action Apixaban [Eliquis] 5 mg PO BID Discharge Medication List Tamsulosin HCl [Flomax] 0.4 mg PO HS 11/21/13 [History] Carvedilol [Coreg] 25 mg PO BID-W/MEALS 10/06/15 [History] Cetirizine HCl [Zyrtec] 10 mg PO DAILY 10/06/15 [History] HYDROcodone/APAP 7.5-325MG [[place] 7.5-325] 1 tab PO 5XD 10/06/15 [History] Ergocalciferol (Vitamin D2) [Vitamin D2] 50,000 unit PO LEON 11/10/16 [History] Finasteride [Proscar] 5 mg PO HS 11/10/16 [History] Apixaban [Eliquis] 5 mg PO BID 04/23/17 [History] Docusate [Colace] 100 mg PO BID PRN 04/23/17 [History] calcitrioL [Rocaltrol] 0.25 mcg PO SA 04/23/17 [History] glipiZIDE [Glucotrol] 10 mg PO AC-TID 04/23/17 [History] lisinopriL [Zestril] 5 mg PO DAILY 04/23/17 [History] Alogliptin Benzoate [Alogliptin] 12.5 mg PO DAILY 09/26/23 [History] Atorvastatin [Lipitor] 40 mg PO HS 09/26/23 [History] Empagliflozin [Jardiance] 25 mg PO DAILY 09/26/23 [History] Fluticasone Nasal [place] [Flonase Nasal [place]] 1 spray EA NOSTRIL BID PRN 09/26/23 [History] Fluticasone Propion/Salmeterol [Advair 250-50 Diskus] 1 puff INHALATION RT-BID 09/26/23 [History] Furosemide [Lasix] 20 mg PO SUFRSA 09/26/23 [History] Hydrocortisone Oint [Hydrocortisone 2.5% Oint] 1 applic TOPICAL BID PRN 09/26/23 [History] Ketoconazole 2% Cream [Nizoral 2%] 1 applic TOPICAL BID 09/26/23 [History] Petrolatum, White [Aquaphor] 1 applic TOPICAL BID 09/26/23 [History] Pantoprazole [Protonix] 40 mg PO DAILY 30 Days #30 tab 09/27/23 [Rx] Follow up Appointment(s)/Referral(s): Fara Swenson MD [STAFF PHYSICIAN] - 09/30/23 (This appointment is for outpatient colonoscopy that will be done at [facility]. The office will call you with a time and directions for bowel prep to begin on Saturday.) [facility],Clinic [Primary Care Provider] - 1-2 days Patient Instructions/Handouts: Rectal Bleeding (DC), Colonoscopy (DC) Activity/Diet/Wound Care/Special Instructions: You are being scheduled for a colonoscopy on Saturday, September 30, [address] Fara Swenson at [facility]. The office will contact you with instructions for bowel prep. You will need to be on a clear liquid diet on 09/29/2023. Continue to hold your Eliquis until after your procedure. Activity: As tolerated. Take breaks as needed. Diet: Heart healthy and carb consistent diet. Avoid salts, or foods with hidden salts such as canned or boxed foods and frozen dinners. Extra salt makes your heart work harder and traps the fluid in your body for longer. Special Instructions: Continue to hold your Eliquis until after colonoscopy scheduled on Saturday and further advised by high school social studies tutor, Dr. Swenson. Again thank you for your service, it is always an honor and a privilege to be able to participate in providing care to a ! Thank you for allowing us to participate in your care, it was truly a pleasure having you for our patient!!! . Discharge Disposition: HOME SELF-CARE
[2023-09-29] MEDS ORDERED: ERGOCALCIFEROL 1,250 MCG (50,000 IU) CAPSULE PO SCH (14:10)
== END 2023-09-27 13:05 | disposition home or self-care (01) ==
LOC: EC 10:21 → 6NMEDSUR 13:02
PROVIDERS: ADMIT Student in an Organized Health Care Education/Training Program; ATTEND Student in an Organized Health Care Education/Training Program
DX: K92.1 Melena (principal); K59.00 Constipation, unspecified; J44.9 Chronic obstructive pulmonary disease, unspecified; E78.5 Hyperlipidemia, unspecified; I25.10 Atherosclerotic heart disease of native coronary artery without angina pectoris; I12.9 Hypertensive chronic kidney disease with stage 1 through stage 4 chronic kidney disease, or unspecified chronic kidney disease; N18.32 Chronic kidney disease, stage 3b; E11.22 Type 2 diabetes mellitus with diabetic chronic kidney disease; N40.0 Benign prostatic hyperplasia without lower urinary tract symptoms; E11.65 Type 2 diabetes mellitus with hyperglycemia; R82.71 Bacteriuria; Z85.528 Personal history of other malignant neoplasm of kidney; Z86.73 Personal history of transient ischemic attack (TIA), and cerebral infarction without residual deficits; Z90.5 Acquired absence of kidney; Z79.899 Other long term (current) drug therapy; Z79.01 Long term (current) use of anticoagulants; Z79.84 Long term (current) use of oral hypoglycemic drugs; Z79.51 Long term (current) use of inhaled steroids; Z88.0 Allergy status to penicillin; Z88.1 Allergy status to other antibiotic agents; Z88.2 Allergy status to sulfonamides
CPT/HCPCS: 96374; 99285; 36415; 94640 ×2; 86900; 86901; 80053; 80048; 82150; 83605; 83690; 83735; 85025; 85027 ×2; 86850; 82272; 81001; 83036; 74176; G0378 ×2; S0138; C9113